=== PATIENT | female | born 1985 | race Caucasian/White ===

== ENCOUNTER 2016-11-05 01:40 | Inpatient (IN) | payer SELFPAY ==
[~2016-11-05 01:40] MED LIST: HUMALOG; LANTUS2P SQ; NALOXONE HCL 0.4 MG/ML AMP IV PRN; SODIUM CHLOR 0.9% 1000 ML INJ 1,000 ML IV SCH
[2016-11-05] MEDS: SODIUM CHLOR 0.9% 1000 ML INJ 1,000 ML IV SCH ×3 (02:50→20:44)
[2016-11-05] MEDS: LORazepam 2 MG/ML VIAL IV PUSH PRN ×3 (03:01→23:02)
[2016-11-05] MEDS: MORPHINE SULFATE 4 MG/ML INJ IV PUSH PRN ×7 (03:55→23:55)
[2016-11-05 04:00] VITALS: BP 147/63; PULSE 97; RESP 18; TEMP 97.9; O2SAT 93
[2016-11-05 08:00] VITALS: BP 142/70; PULSE 101; PULSE 90; RESP 18; TEMP 98.8; O2SAT 95
[2016-11-05] MEDS: SODIUM CHLORIDE 0.9% FLUSH 10 ML FLUSH IV FLUSH SCH ×2 (09:00→21:00)
[2016-11-05] MEDS: ONDANSETRON HCL 4 MG/2 ML VIAL IV PRN ×2 (09:16→19:48)
[2016-11-05 12:00] VITALS: BP 153/82; PULSE 96; RESP 18; TEMP 98.5; O2SAT 98
[2016-11-05 16:00] VITALS: BP 130/71; PULSE 84; RESP 18; TEMP 98.3; O2SAT 96
[2016-11-05 17:37] LABS: CHLORIDE 101 MEQ/L (98-107); POTASSIUM 3.7 MEQ/L (3.5-5.1); SODIUM (NA) 132 MEQ/L (136-145)
[2016-11-05 17:41] LABS: ANION GAP 7 MEQ/L (5-15); BICARBONATE 23.9 MEQ/L (21.0-32.0); BLOOD UREA NITROGEN 9 MG/DL (7-18)
[2016-11-05 17:44] LABS: ALT (GPT) 48 U/L (10-53); AST (GOT) 136 U/L (15-37); GLOMERULAR FILTRATION RATE 127 ML/MIN (>89)
[2016-11-05 17:45] LABS: TOTAL BILIRUBIN ADULT 4.3 MG/DL (0.2-1.0)
[2016-11-05 17:46] LABS: TOTAL BILIRUBIN ADULT 4.2 MG/DL (0.2-1.0)
[2016-11-05 17:47] LABS: ALKALINE PHOSPHATASE 116 U/L (45-117); CREATINE KINASE 238 U/L (26-192)
[2016-11-05 17:50] LABS: INDIRECT BILIRUBIN 2.8 MG/DL (0.0-0.8)
[2016-11-05 18:03] LABS: CKMB 1.3 NG/ML (0.5-3.6)
[2016-11-05 20:00] VITALS: BP 135/67; PULSE 93; RESP 20; TEMP 98.5; O2SAT 98
[2016-11-05 22:43] VITALS: PULSE 91
[2016-11-05] MEDS ORDERED: RIFAXIMIN 200 MG TAB PO ONE (23:15)
[2016-11-05] MEDS ORDERED: LACTULOSE SYRUP 20 GM/30 ML CUP PO ONE (23:15)
--- NOTE | 2016-11-05 23:20 | HHI.HP ---
[facility] [place] [facility] Primary Care Physician No Primary Care Physician Admission Diagnosis Diagnoses: Travel History International Travel<30 Days: No Contact w/Intl Traveler <30 Da: No Traveled to Known Affected Are: No History of Present Illness Patient seen this morning. Reports quitting alcohol 3-4 days ago, and reports one-day history of right upper quadrant pain, confusion. She says she woke up confused She says that she drinks "quite a hell of a lot"of alcohol daily. Patient was noted to have a seizure in the ER last night. She tells me it is 2016, however is unaware of the month. History is difficult secondary to generalized confusion. Review of Systems Except as stated in HPI: all other systems reviewed are Neg Past Family Social History Past Medical History Diabetes Chronic alcoholism Past Surgical History 4 Cholecystectomy Reported Medications patient states she takes insulin. Allergies: Coded Allergies: aspirin (Verified Allergy, Unknown, 11/04/16) Uncoded Allergies: BENTLY (Allergy, Unknown, 11/04/16) Family History Patient reports mother from unknown cancer. Reports father from heart attack age 51 Social History Patient smokes occasionally. Patient says she smokes an enormous amount of alcohol, but quit 3-4 days ago. Patient denies any illicit drugs. Physical Exam Vital Signs Vital Signs Date Time Temp Pulse Resp B/P (MAP) Pulse Ox O2 Delivery O2 Flow Rate FiO2 11/05/16 22:43 91 11/05/16 16:00 98.3 84 18 130/71 (90) 96 11/05/16 14:22 18 11/05/16 12:00 98.5 96 18 153/82 (105) 98 11/05/16 08:00 98.8 90 18 142/70 (94) 95 11/05/16 08:00 101 11/05/16 04:00 97.9 97 18 147/63 (91) 93 Physical Exam GENERAL: This is a well-nourished, obese,well-developed patient,appears generally confused. Oriented to year not month or day SKIN: No rashes, ecchymoses or lesions. Cool and dry. HEAD: Atraumatic. Normocephalic. No temporal or scalp tenderness. EYES: Pupils equal round and reactive. Extraocular motions intact. No scleral icterus. No injection or drainage. ENT: Nose without bleeding, purulent drainage or septal hematoma. Throat without erythema, tonsillar hypertrophy or exudate. Uvula midline. Airway patent. NECK: Trachea midline. No JVD or lymphadenopathy. Supple, nontender, no meningeal signs. CARDIOVASCULAR: Regular rate and rhythm without murmurs, gallops, or rubs. RESPIRATORY: Clear to auscultation. Breath sounds equal bilaterally. No wheezes , rales, or rhonchi. GASTROINTESTINAL: Abdomen soft, mild right upper quadrant tenderness. Positive bowel sounds. No rebound or guarding.No hepato-splenomegaly, or palpable masses. No guarding. MUSCULOSKELETAL: Extremities without clubbing, cyanosis, or edema. No joint tenderness, effusion, or edema noted. No calf tenderness. Negative Homans sign bilaterally. NEUROLOGICAL: Awake and alert. Cranial nerves II through XII intact. Motor and sensory grossly within normal limits. Five out of 5 muscle strength in all muscle groups. Normal speech. Laboratory Laboratory Tests Test 11/05/16 17:20 Blood Urea Nitrogen 9 Creatinine 0.56 Random Glucose 123 Total Protein 7.1 Albumin 2.5 Calcium Level 7.9 Alkaline Phosphatase 116 Aspartate Amino Transf (AST/SGOT) 136 Alanine Aminotransferase (ALT/SGPT) 48 Total Bilirubin 4.2 Sodium Level 132 Potassium Level 3.7 Chloride Level 101 Carbon Dioxide Level 23.9 Anion Gap 7 Estimat Glomerular Filtration Rate 127 Direct Bilirubin 1.5 Indirect Bilirubin 2.8 Ammonia 103 Total Creatine Kinase 238 Creatine Kinase MB 1.3 Creatine Kinase MB % 0.5 Result Diagram: 11/05/16 1720 Caprini VTE Risk Assessment Caprini VTE Risk Assessment: No/Low Risk (score <= 1) VTE Pharm Contraindication: Thrombocytopenia(<50) Caprini Risk Assessment Model Point Value = 1 Point Value = 2 Point Value = 3 Point Value = 5 Age 41-60 Minor surgery BMI > 25 kg/m2 Swollen legs Varicose veins or History of unexplained or recurrent spontaneous Oral contraceptives or hormone replacement Sepsis (< 1 month) Serious lung disease, including pneumonia (< 1 month) Abnormal pulmonary function Acute myocardial infarction Congestive heart failure (< 1 month) History of inflammatory bowel disease Medical patient at bed rest Age 61-74 Arthroscopic surgery Major open surgery (> 45 min) Laparoscopic surgery (> 45 min) Malignancy Confined to bed (> 72 hours) Immobilizing plaster cast Central venous access Age >= 75 History of VTE Family history of VTE Factor V Leiden Prothrombin [id number] Lupus anticoagulant Anticardiolipin antibodies Elevated serum homocysteine Heparin-induced thrombocytopenia Other congenital or acquired thrombophilia Stroke (< 1 month) Elective arthroplasty Hip, pelvis, or leg fracture Acute spinal cord injury (< 1 month) Prophylaxis Regimen Total Risk Factor Score Risk Level Prophylaxis Regimen 0-1 Low Early ambulation 2 Moderate Order ONE of the following: *Sequential Compression Device (SCD) *Heparin 5000 units SQ BID 3-4 Higher Order ONE of the following medications: *Heparin 5000 units SQ TID *Enoxaparin/Lovenox 40 mg SQ daily (WT < 150 kg, CrCl > 30 mL/min) *Enoxaparin/Lovenox 30 mg SQ daily (WT < 150 kg, CrCl > 10-29 mL/min) *Enoxaparin/Lovenox 30 mg SQ BID (WT < 150 kg, CrCl > 30 mL/min) AND/OR *Sequential Compression Device (SCD) 5 or more Highest Order ONE of the following medications: *Heparin 5000 units SQ TID (Preferred with Epidurals) *Enoxaparin/Lovenox 40 mg SQ daily (WT < 150 kg, CrCl > 30 mL/min) *Enoxaparin/Lovenox 30 mg SQ daily (WT < 150 kg, CrCl > 10-29 mL/min) *Enoxaparin/Lovenox 30 mg SQ BID (WT < 150 kg, CrCl > 30 mL/min) AND *Sequential Compression Device (SCD) Assessment and Plan Assessment and Plan //Hepatic encephalopathy. -No acute findings on CT head 11/04. Ammonia elevated 103. -Start lactulose and rifaximin. //Alcohol withdrawal. //Alcohol withdrawal seizure. -Altered mental status really could be from alcohol withdrawal. Patient says she quit taking 3-4 days prior to admission. -We'll schedule Librium. As needed Ativan. Continue to monitor closely. //Diabetes mellitus . Glucose within normal limits. We'll order A1c. Insulin sliding scale. //Thrombocytopenia. Likely secondary to liver disease and splenomegaly. No signs of bleeding. Continue to monitor. //Suspected alcoholic hepatitis. Likely subacute. CT abdomen from 11/04 reviewed. No acute findings. Splenomegaly, portal hypertension. Will order INR in order to calculate Madrey's discriminate function. Gastroenterology consult. //tobacco abuse. Will discuss with patient when more coherent. //Prophylaxis. No anti-coagulation due to liver disease. Discussed Condition With patient, nurse. Physician Certification 2 Midnight Certification Type: Admission for Inpatient Services Order for Inpatient Services The services are ordered in accordance with Medicare regulations or non- Medicare payer requirements, as applicable. In the case of services not specified as inpatient-only, they are appropriately provided as inpatient services in accordance with the 2-midnight benchmark. Estimated LOS (days): 2 days is the estimated time the patient will need to remain in the hospital, assuming treatment plan goals are met and no additional complications. Post-Hospital Plan: Home Basilio Ramsey MD Nov 05, 2016 23:20
[2016-11-05] MEDS ORDERED: GLUCAGON 1 MG/ML VIAL OTHER PRN (23:30)
[2016-11-05] MEDS ORDERED: DEXTROSE 50% IN WATER 50 ML VIAL(D50) IV PUSH PRN (23:30)
[2016-11-06] VITALS (7 sets, daily range): BP systolic 114–145; BP diastolic 65–80; PULSE 78–98; RESP 17–20; TEMP 97.2–99; O2SAT 95–97
[2016-11-06] MEDS ORDERED: RIFAXIMIN 200 MG TAB PO ONE (00:30)
[2016-11-06] MEDS: MORPHINE SULFATE 4 MG/ML INJ IV PUSH PRN ×7 (03:00→21:59)
[2016-11-06 05:52] LABS: HEMATOCRIT 27.6 % (35.0-46.0); MEAN CORPUSCULAR HEMOGLOBIN 23.5 PG (27.0-34.0); MEAN CORPUSCULAR HGB CONC 31.3 % (32.0-36.0); PLATELET COUNT 29 TH/MM3 (150-450); RED BLOOD COUNT 3.68 MIL/MM3 (4.00-5.30); RED CELL DISTRIBUTION WIDTH 17.7 % (11.6-17.2); WHITE BLOOD COUNT 3.2 TH/MM3 (4.0-11.0)
[2016-11-06 05:55] LABS: HEMO FLAGS AUTO DIFF
[2016-11-06] MEDS ORDERED: RIFAXIMIN 200 MG TAB PO SCH (06:00)
[2016-11-06] MEDS: SODIUM CHLOR 0.9% 1000 ML INJ 1,000 ML IV SCH ×2 (06:03→16:15)
[2016-11-06] MEDS: INSULIN ASPART SUPPLEMENTAL SCALE SQ SCH ×4 (06:08→21:00)
[2016-11-06 06:09] LABS: POTASSIUM 3.2 MEQ/L (3.5-5.1)
[2016-11-06 06:11] LABS: INTERNATIONAL NORMALIZED RATIO 1.6 RATIO; PROTHROMBIN TIME - PATIENT 18.6 SEC (9.8-11.6)
[2016-11-06 06:16] LABS: BICARBONATE 26.9 MEQ/L (21.0-32.0)
[2016-11-06 06:18] LABS: ACANTHOCYTES OCC (NORMAL); EOSINOPHILS 2 % (0-4); KERATOCYTES OCC (NORMAL); NEUTROPHIL # MANUAL DIFF 2.2 TH/MM3 (1.8-7.7); OVALOCYTES 1+ (NORMAL); PLATELET ESTIMATE SMEAR LOW (NORMAL); PLATELET MORPHOLOGY NORMAL (NORMAL); POLYS (SEG NEUTROPHILS) 70 % (16-70); SCAN/DIFF FINAL DIFF MANUAL; TARGET CELLS 1+ (NORMAL); TEARDROP RBCS 1+ (NORMAL); WBC DIFF SAMPLE 100
[2016-11-06] MEDS: SODIUM CHLORIDE 0.9% FLUSH 10 ML FLUSH IV FLUSH SCH ×2 (09:00→20:01)
[2016-11-06] MEDS: RIFAXIMIN 550 MG TAB PO SCH ×2 (09:06→20:00)
[2016-11-06] MEDS: LACTULOSE SYRUP 20 GM/30 ML CUP PO SCH ×4 (09:06→20:00)
[2016-11-06] MEDS ORDERED: POTASSIUM CHLORIDE 10 MEQ CONTROLLED RELEASE TAB PO ONE (12:00)
[2016-11-06 12:12] LABS: MAGNESIUM 1.6 MG/DL (1.5-2.5)
[2016-11-06 12:17] LABS: INDIRECT BILIRUBIN 2.2 MG/DL (0.0-0.8); TOTAL BILIRUBIN ADULT 4.1 MG/DL (0.2-1.0)
[2016-11-06 12:34] LABS: HEMOGLOBIN A1a 1.1 %; HEMOGLOBIN A1b 0.7 %; HEMOGLOBIN F 1.4 %; HEMOGLOBIN LA1C 1.7 %; HEMOGLOBIN P3 3.5 %
[2016-11-06] MEDS: ONDANSETRON HCL 4 MG/2 ML VIAL IV PRN ×2 (15:44→20:01)
--- NOTE | 2016-11-06 18:36 | MB ---
cc: ROWENA ROCHA DATE OF CONSULTATION 11/06/[address] Basilio Ramsey REASON FOR CONSULTATION abnormal liver enzymes, abdominal pain, confusion, alcoholic liver disease. HISTORY OF PRESENT ILLNESS Ms. Abreu is a 31-year-old lady who was admitted to the hospital for confusion and right upper quadrant pain. The patient is more awake today. She is able to give some history. She states she did have some nausea and vomiting for two days prior to her admission to the hospital. She reports some dark tarry stool in the past. She does have a history of hepatitis C, stated she was diagnosed two years ago , unclear what type of genotype she has or if she will have viral load positive or not. She was in drug rehab at that time while she was with her child. Currently she is using alcohol. She stopped using alcohol a few days prior to her admission here. She never had an endoscopy and colonoscopy. Currently, she is eating dinner with no problems. PAST MEDICAL HISTORY 1. Diabetes 2. Chronic alcohol use 3. History of hepatitis C 4. History of drug use. PAST SURGICAL HISTORY 1. x4 2. Cholecystectomy. MEDICATIONS Insulin. ALLERGIES ASPIRIN BENTYL FAMILY HISTORY Mother had cancer, unknown type SOCIAL HISTORY Smokes occasionally. She does drink alcohol, stopped 3-4 years ago, stopped using drugs two years ago after the of her child. REVIEW OF SYSTEMS She denies any fever or chills, weight loss or weight gain. ENT: No alteration in baseline hearing or visual acuity PULMONARY: Denies any chest pain, shortness of breath. GASTROINTESTINAL: As above. GENITOURINARY:: Denies dysuria, hematuria. HEMATOLOGIC: Does have history of anemia, no bleeding disorder. SKIN: No alteration in baseline skin lesion. NEUROLOGIC: No history of TIA or CVA kind of symptoms. She was recently admitted with confusion. PHYSICAL EXAMINATION GENERAL: On clinical exam she is sitting in bed in no acute distress, morbidly obese, jaundiced. VITAL SIGNS: Temperature of 98.1, pulse 83, respiration 19, blood pressure 114/75, pulse ox 97 HEENT: Pupils equal, round, reactive to light and accommodation. Jaundiced. NECK: No JVD. No lymphadenopathy. CHEST: Clear to auscultation and palpation. CARDIOVASCULAR: S1, S2. No murmur. ABDOMEN: Obese. Tender in the right upper quadrant. Splenomegaly. RESPIRATORY MANAGER: Awake, alert, oriented x3 at this time. No focal signs identified. LABORATORY DATA White count 3.2, hemoglobin 8.6, platelets 29. PT/INR 1.6 and 18.6. Chemistry - her total bilirubin is 4.1, direct bilirubin 1.9 with indirect bilirubin 2.2, albumin 2.5. IMAGING STUDIES CT abdomen and pelvis showed severe splenomegaly, hepatomegaly with steatosis. IMPRESSION 1. Ms. Abreu is an unfortunate 31-year-old lady admitted with confusion, abdominal pain resolved at this time. The patient has signs of portal hypertension. 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 Splenomegaly with low platelets. Low neutrophils. 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 2. Anemia macrocytic most likely secondary to liver disease, 3. Morbid obesity 4. Alcohol use. 5.elevated indirect bilirubin most likely some degree of hemolysis RECOMMENDATIONS We are going to send additional blood work including hepatitis C viral load, celiac panel, ELAINA, anti-smooth muscle antibody, anti-mitochondrial antibodies, ferritin iron, alpha-fetoprotein, hematology consultation. Supportive care. Transfuse p.r.n. The patient was counseled about stopping alcohol completely, may need upper endoscopy and colonoscopy before her discharge, hepatitis profile. I would like to thank Dr. Ramsey for referring her to our office for consultation. Rowena Rocha MD BSB/SA /5:49 PM /6:02 PM JOSE
--- NOTE | 2016-11-06 19:06 | MB ---
cc: YULIANA BRYAN MD DATE OF CONSULTATION 11/06/16 HISTORY OF PRESENT ILLNESS Ms. Abreu is a 31 year old lady with a history of diabetes, obesity, alcohol abuse, hepatitis C who presented to the emergency room with right upper quadrant abdominal pain and nausea and vomiting. She reports very heavy alcohol abuse. She says she drinks four six-packs of beer a day and multiple shots of hard liquor a day. She reports that she was vomiting in the park and a bystander called 911. She was brought to the [place] [facility]. In the emergency room, she was noted to have a seizure upon arrival. She reports that she was attempting to quit alcohol cold turkey and that is why she was feeling nauseated. She was found to have an anemia with a hemoglobin initially of 10.3 and then today value was 8.6. MCV is 75. She was also found to have thrombocytopenia with a platelet count of 39,000 on the and then today the platelet count value was 29,000. She has elevated total bilirubin, direct bilirubin and AST. PAST MEDICAL HISTORY 1. Diabetes 2. Hepatitis C 3. Alcohol abuse PAST SURGICAL HISTORY 1. Four caesarean sections 2. Cholecystectomy SOCIAL HISTORY The patient lives in [place] with her mother and she has four children, ages 5, 4, 3 and 2. Her mother is currently taking care of her children. She reports intermittent tobacco abuse and then heavy alcohol use. FAMILY HISTORY She reports that her father is from heart disease and liver disease. Her mother is living with diabetes. ALLERGIES ASPIRIN BENTYL SHE REPORTS SHE HAS NOSEBLEEDS TO BOTH MEDICATIONS. MEDICATIONS Home, Insulin REVIEW OF SYSTEMS GASTROINTESTINAL: Positive for abdominal pain, nausea and intermittent vomiting. SKIN: Positive for yellowing of the skin. CONSTITUTIONAL: Fatigue and malaise. All other review of systems are negative. PHYSICAL EXAMINATION GENERAL: Obese lady resting in bed in no distress often falls asleep during interview. HEAD: Normocephalic, atraumatic. NECK: Supple with no palpable lymphadenopathy. ENT: Oropharynx clear. CARDIOVASCULAR: Regular rate and rhythm with no murmur. RESPIRATORY: No respiratory distress. Clear to auscultation bilaterally. GASTROINTESTINAL: Obese abdomen, soft, tender to palpation. SKIN: Jaundice present. MUSCULOSKELETAL: Good muscle tone. Full range of motion. NEUROLOGIC: No focal deficit. PSYCHIATRIC: At times is angry and upset during interview. HEME: No easy bruising. ASSESSMENT AND PLAN 1. Thrombocytopenia. Platelet count initially 37,000 on November 04 and is 29,000 on value today. Suspect that multiple etiologies are contributing to her thrombocytopenia including known hepatitis C infection, chronic liver disease, alcoholism, hypersplenism with splenomegaly noted on recent CT scan. She is found to have massive splenomegaly with a spleen measuring 22.4 cm in length. On the same CT scan, her liver was found to be 26 cm. Steatosis was present and recannulized periumbilical vein indicating portal hypertension. She is not having any easy bruising or easy bleeding. 2. Anemia. This is also likely multifactorial due to known hepatitis C infection, chronic alcoholism and possible nutrient deficiency given alcohol abuse and poor diet. She does report heavy periods but no other sites of bleeding. She reports that she has received four blood transfusions in the past year. For further evaluation, we will order TSH, vitamin B12, free T4, folate, iron profile, ferritin, LDH, reticulocyte count, PT, PTT, INR, fibrinogen, haptoglobin, hepatitis C, peripheral blood smear. The patient has declined HIV test. We will follow up the results of above studies and, if unrevealing, we will consider a bone marrow biopsy. 3. Liver abnormalities, known hepatitis C and heavy alcohol abuse. GI team has been consulted and will continue to follow patient. Thank you for this consultation. The hematology service will continue to follow while inpatient. MD GIFTY Nicolas/ /5:59 PM /6:33 PM JOSE
--- NOTE | 2016-11-06 19:45 | HHI.PR ---
Subjective Remarks Patient seen this morning. Patient says that right upper quadrant pain continues. denies any chest pain or shortness of breath. Denies any bleeding.Denies any bowel movements. Objective Vital Signs Date Time Temp Pulse Resp B/P (MAP) Pulse Ox O2 Delivery O2 Flow Rate FiO2 11/06/16 16:31 98.1 83 19 114/75 (88) 97 11/06/16 12:00 97.2 89 17 123/80 (94) 96 11/06/16 08:00 97 11/06/16 08:00 97.7 85 18 120/76 (91) 97 11/06/16 06:27 18 11/06/16 04:00 98.9 95 20 119/79 (92) 95 11/06/16 00:00 99.0 98 20 124/65 (84) 97 11/05/16 22:43 91 11/05/16 20:00 98.5 93 20 135/67 (89) 98 I/O 11/05/16 11/05/16 11/05/16 11/06/16 11/06/16 11/06/16 06:59 14:59 22:59 06:59 14:59 22:59 Intake Total 640 ml 2981 ml 1346 ml 500 ml 604 ml Output Total 400 ml 800 ml Balance 640 ml 2581 ml 546 ml 500 ml 604 ml Intake Oral 1460 ml 500 ml IV Total 640 ml 1521 ml 1346 ml 604 ml Output Urine Total 400 ml 800 ml # Voids 1 # Bowel Movements 0 Result Diagram: 11/06/1652111/06/16521 Objective Remarks GENERAL: patient lying in bed. Awake, confusion has improved from yesterday. Patient is oriented to Person,year, month, location SKIN: Warm and dry. HEAD: Normocephalic. EYES: No scleral icterus. No injection or drainage. NECK: Supple, trachea midline. No JVD or lymphadenopathy. CARDIOVASCULAR: Regular rate and rhythm without murmurs, gallops, or rubs. RESPIRATORY: Breath sounds equal bilaterally. No accessory muscle use. GASTROINTESTINAL: Abdomen soft,tender to moderate palpation in the right upper quadrant. No rebound or guarding. MUSCULOSKELETAL: No cyanosis, or edema. BACK: Nontender without obvious deformity. No CVA tenderness. A/P Assessment and Plan //Hepatic encephalopathy. -No acute findings on CT head 11/04. Ammonia elevated 103. -cont lactulose and rifaximin. //Alcohol withdrawal.appears to be improving slightly. //Alcohol withdrawal seizure. -Altered mental status really could be from alcohol withdrawal. Patient says she quit taking 3-4 days prior to admission. -continuescheduled Librium. As needed Ativan. Continue to monitor closely. //Diabetes mellitus . Glucose within normal limits. We'll order A1c. Insulin sliding scale. //Thrombocytopenia. Likely secondary to liver disease and splenomegaly. No signs of bleeding. Continue to monitor. //Suspected alcoholic hepatitis. Likely subacute. CT abdomen from 11/04 reviewed. No acute findings. Splenomegaly, portal hypertension. Will order INR in order to calculate Madrey's discriminate function. Gastroenterology consult. //tobacco abuse. Will discuss with patient when more coherent. //Prophylaxis. No anti-coagulation due to liver disease. Discharge Planning when cleared by gastroenterology. Basilio Ramsey MD Nov 06, 2016 19:45
[2016-11-07] VITALS (8 sets, daily range): BP systolic 113–133; BP diastolic 66–76; PULSE 80–93; RESP 19–22; TEMP 97.7–98.1; O2SAT 93–99
[2016-11-07] MEDS: MORPHINE SULFATE 4 MG/ML INJ IV PUSH PRN ×7 (01:06→21:52)
[2016-11-07] MEDS: SODIUM CHLOR 0.9% 1000 ML INJ 1,000 ML IV SCH ×3 (02:06→22:15)
[2016-11-07] MEDS: ONDANSETRON HCL 4 MG/2 ML VIAL IV PRN ×3 (04:03→15:36)
[2016-11-07] MEDS: INSULIN ASPART SUPPLEMENTAL SCALE SQ SCH ×4 (06:24→21:00)
--- NOTE | 2016-11-07 08:08 | HHI.GIFU ---
GI Follow-up Note Consult Follow-up Subjective: Patient laying in bed comfortably, asking for pain medications.Hematology consult appreciated .No nausea, vomiting, still pain in ruq Objective: PHYSICAL EXAMINATION: Vitals signs stable No fever Vital Signs Date Time Temp Pulse Resp B/P (MAP) Pulse Ox O2 Delivery O2 Flow Rate FiO2 11/07/16 04:00 97.9 80 22 114/66 (82) 96 HEENT: Pupils round and reactive to light; normocephalic; atraumatic; jaundice. Throat is clear, obese NECK: Neck is supple, no JVD, no lymphadenopathy. CHEST: Chest is clear to auscultation and percussion. CARDIAC: Regular rate and rhythm with no murmur gallop or rubs. ABDOMEN: Soft, nondistended, nontender; no hepatosplenomegaly; bowel sounds are present in all four quadrants. EXTREMITIES: No clubbing, cyanosis, or edema. SKIN: Normal; no rash; jaundice. SEMICONDUCTOR DIES LOADER: No focal deficits; alert and oriented times three. Available Data (labs, X- Rays, Procedues) : Laboratory Tests Test 11/05/16 17:20 11/06/16 05:22 Blood Urea Nitrogen 9 MG/DL 7 MG/DL Creatinine 0.56 MG/DL 0.55 MG/DL Random Glucose 123 MG/DL 92 MG/DL Total Protein 7.1 GM/DL 6.9 GM/DL Albumin 2.5 GM/DL 2.5 GM/DL Calcium Level 7.9 MG/DL 7.7 MG/DL Alkaline Phosphatase 116 U/L 114 U/L Aspartate Amino Transf (AST/SGOT) 136 U/L 158 U/L Alanine Aminotransferase (ALT/SGPT) 48 U/L 50 U/L Total Bilirubin 4.2 MG/DL 4.1 MG/DL Sodium Level 132 MEQ/L 136 MEQ/L Potassium Level 3.7 MEQ/L 3.2 MEQ/L Chloride Level 101 MEQ/L 102 MEQ/L Carbon Dioxide Level 23.9 MEQ/L 26.9 MEQ/L Anion Gap 7 MEQ/L 7 MEQ/L Estimat Glomerular Filtration Rate 127 ML/MIN 130 ML/MIN Direct Bilirubin 1.5 MG/DL 1.9 MG/DL Indirect Bilirubin 2.8 MG/DL 2.2 MG/DL Ammonia 103 MCMOL/L Total Creatine Kinase 238 U/L Creatine Kinase MB 1.3 NG/ML Creatine Kinase MB % 0.5 % White Blood Count 3.2 TH/MM3 Red Blood Count 3.68 MIL/MM3 Hemoglobin 8.6 GM/DL Hematocrit 27.6 % Mean Corpuscular Volume 75.0 FL Mean Corpuscular Hemoglobin 23.5 PG Mean Corpuscular Hemoglobin Concent 31.3 % Red Cell Distribution Width 17.7 % Platelet Count 29 TH/MM3 Mean Platelet Volume 9.1 FL CBC Comment AUTO DIFF Differential Total Cells Counted 100 Neutrophils % (Manual) 70 % Lymphocytes % 23 % Monocytes % 5 % Eosinophils % 2 % Neutrophils # (Manual) 2.2 TH/MM3 Differential Comment FINAL DIFF MANUAL Platelet Estimate LOW Platelet Morphology Comment NORMAL Target Cells 1+ Tear Drop Cells 1+ Ovalocytes 1+ Acanthocytes OCC Keratocytes OCC Prothrombin Time 18.6 SEC Prothromb Time International Ratio 1.6 RATIO Hemoglobin A1c 5.3 % Magnesium Level 1.6 MG/DL ASSESSMENT/PLAN: pancytopenia most likely secondary liver cirrhosis liver cirrhosis secondary hep c and etoh anemia multifactorial nausea, vomiting -secondary etoh withdrawal pain ruq secondary enlarged liver/cirrhosis Recommendations egd/colon before discharge - fu labs await hematology work-up needs to stop etoh completely fu hep c viral load if positive rx as an op It was a pleasure seeing Juliana Abreu. Thank you for this consult. Entered by: Anca Thomas MD Nov 07, 2016 08:08
[2016-11-07] MEDS: RIFAXIMIN 550 MG TAB PO SCH ×2 (08:09→20:50)
[2016-11-07] MEDS: LACTULOSE SYRUP 20 GM/30 ML CUP PO SCH ×4 (08:09→20:50)
[2016-11-07] MEDS: LORazepam 2 MG/ML VIAL IV PUSH PRN ×4 (08:11→21:52)
[2016-11-07 08:40] LABS: HEMATOCRIT 27.4 % (35.0-46.0); MEAN CELL VOLUME 75.8 FL (80.0-100.0); MEAN CORPUSCULAR HEMOGLOBIN 24.4 PG (27.0-34.0); MEAN CORPUSCULAR HGB CONC 32.1 % (32.0-36.0); RED BLOOD COUNT 3.61 MIL/MM3 (4.00-5.30); RED CELL DISTRIBUTION WIDTH 18.3 % (11.6-17.2); WHITE BLOOD COUNT 2.4 TH/MM3 (4.0-11.0)
[2016-11-07 08:48] LABS: HEMO FLAGS AUTO DIFF; PLATELET COUNT 38 TH/MM3 (150-450)
[2016-11-07] MEDS: SODIUM CHLORIDE 0.9% FLUSH 10 ML FLUSH IV FLUSH SCH ×2 (09:00→20:50)
[2016-11-07 09:03] LABS: APTT (PATIENT) 32.5 SEC (24.3-30.1); INTERNATIONAL NORMALIZED RATIO 1.7 RATIO; PROTHROMBIN TIME - PATIENT 19.1 SEC (9.8-11.6)
[2016-11-07 09:04] LABS: CHLORIDE 102 MEQ/L (98-107); POTASSIUM 3.5 MEQ/L (3.5-5.1); SODIUM (NA) 136 MEQ/L (136-145)
[2016-11-07 09:08] LABS: ANION GAP 7 MEQ/L (5-15); BICARBONATE 27.2 MEQ/L (21.0-32.0); BLOOD UREA NITROGEN 5 MG/DL (7-18)
[2016-11-07 09:11] LABS: ALT (GPT) 56 U/L (10-53); AST (GOT) 159 U/L (15-37); GLOMERULAR FILTRATION RATE 133 ML/MIN (>89)
[2016-11-07 09:13] LABS: TOTAL BILIRUBIN ADULT 4.5 MG/DL (0.2-1.0)
[2016-11-07 09:14] LABS: ALKALINE PHOSPHATASE 117 U/L (45-117)
[2016-11-07 09:28] LABS: ACANTHOCYTES 1+ (NORMAL); BANDS 1 % (0-6); EOSINOPHILS 1 % (0-4); KERATOCYTES 1+ (NORMAL); METAMYELOCYTES 1 % (0-1); NEUTROPHIL # MANUAL DIFF 1.7 TH/MM3 (1.8-7.7); POLYS (SEG NEUTROPHILS) 68 % (16-70); TARGET CELLS 2+ (NORMAL); WBC DIFF SAMPLE 100
[2016-11-07 09:29] LABS: OVALOCYTES 1+ (NORMAL); PLATELET ESTIMATE SMEAR LOW (NORMAL); PLATELET MORPHOLOGY NORMAL (NORMAL); SCAN/DIFF FINAL DIFF MANUAL
[2016-11-07 09:44] LABS: RETIC % 2.5 % (0.4-3.0)
[2016-11-07 09:46] LABS: REVIEW FLAG FINAL
[2016-11-07 11:37] LABS: FERRITIN 81 NG/ML (8-252); LDH SERUM 277 U/L (84-246); TRANSFERRIN IRON PROFILE 170 MG/DL (200-360)
--- NOTE | 2016-11-07 19:38 | PD.ONC.PN ---
Subjective Subjective Remarks Appears drunk or sleepy. No seizures, requesting her pain medication before time. Lengthy discussion about her addiction and need to seek support to help her quit. Discussed there is evidence of liver damage and secondary effects of alcohol in the bone marrow. Advised need to follow up with liver specialist, states "that cost money" Objective Data Date Time Temp Pulse Resp B/P (MAP) Pulse Ox O2 Delivery O2 Flow Rate FiO2 11/07/16 18:39 97.8 85 19 133/75 (94) 93 11/07/16 18:35 20 11/07/16 12:15 98.1 82 19 120/76 (91) 94 11/07/16 09:34 98.1 93 20 113/71 (85) 99 11/07/16 08:00 85 11/07/16 04:00 97.9 80 22 114/66 (82) 96 11/07/16 00:00 97.7 83 22 124/72 (89) 97 11/06/16 20:01 82 11/06/16 20:00 97.7 78 18 145/76 (99) 97 11/07/16 11/07/16 11/07/16 07:00 15:00 23:00 Intake Total 1062 ml Balance 1062 ml Result Diagram: 11/07/16 0800 11/07/16 0800 Laboratory Results Laboratory Tests Test 11/07/16 08:00 White Blood Count 2.4 TH/MM3 Red Blood Count 3.61 MIL/MM3 Hemoglobin 8.8 GM/DL Hematocrit 27.4 % Mean Corpuscular Volume 75.8 FL Mean Corpuscular Hemoglobin 24.4 PG Mean Corpuscular Hemoglobin Concent 32.1 % Red Cell Distribution Width 18.3 % Platelet Count 38 TH/MM3 Mean Platelet Volume 8.4 FL CBC Comment AUTO DIFF Differential Total Cells Counted 100 Neutrophils % (Manual) 68 % Band Neutrophils % 1 % Lymphocytes % 25 % Monocytes % 4 % Eosinophils % 1 % Neutrophils # (Manual) 1.7 TH/MM3 Metamyelocytes 1 % Differential Comment FINAL DIFF MANUAL Platelet Estimate LOW Platelet Morphology Comment NORMAL Target Cells 2+ Ovalocytes 1+ Acanthocytes 1+ Keratocytes 1+ Blood Smear Pathologist Review Reticulocyte Count 2.5 % Absolute Reticulocyte Count 93.2 MIL/L Haptoglobin 14 MG/DL Prothrombin Time 19.1 SEC Prothromb Time International Ratio 1.7 RATIO Activated Partial Thromboplast Time 32.5 SEC Fibrinogen 181 mg/dL Blood Urea Nitrogen 5 MG/DL Creatinine 0.54 MG/DL Random Glucose 99 MG/DL Total Protein 7.2 GM/DL Albumin 2.5 GM/DL Calcium Level 8.3 MG/DL Alkaline Phosphatase 117 U/L Aspartate Amino Transf (AST/SGOT) 159 U/L Alanine Aminotransferase (ALT/SGPT) 56 U/L Total Bilirubin 4.5 MG/DL Sodium Level 136 MEQ/L Potassium Level 3.5 MEQ/L Chloride Level 102 MEQ/L Carbon Dioxide Level 27.2 MEQ/L Anion Gap 7 MEQ/L Estimat Glomerular Filtration Rate 133 ML/MIN Iron Level 59 MCG/DL Total Iron Binding Capacity 238 MCG/DL Percent Iron Saturation 24.8 % Ferritin 81 NG/ML Lactate Dehydrogenase 277 U/L Tumor Marker Alpha Fetoprotein 4.8 NG/ML Vitamin B12 Level 1048 PG/ML Folate 8.5 NG/ML Free Thyroxine 1.30 NG/DL Thyroid Stimulating Hormone 3rd Gen 6.050 uIU/ML Hepatitis A IgM Antibody NEGATIVE Hepatitis B Surface Antigen NEGATIVE Hepatitis B Core IgM Antibody NEGATIVE Hepatitis C Antibody REACTIVE Administered Medications Medications (Trade) Dose Ordered Sig/Renee Route PRN Reason Start Time Stop Time Status Last Admin Dose Admin Sodium Chloride 1,000 ml @ 100 mls/hr Q10H IV 11/05/16 00:15 11/07/16 11:30 Lorazepam (Ativan Inj) 1 mg Q2H PRN IV PUSH withdrawal symptoms 11/05/16 03:00 11/07/16 18:29 Morphine Sulfate (Morphine Inj) 2 mg Q3H PRN IV PUSH pain >5 11/05/16 03:00 11/07/16 18:30 Ondansetron HCl (Zofran Inj) 4 mg Q6H PRN IV NAUSEA OR VOMITING 11/05/16 09:00 11/07/16 15:36 Chlordiazepoxide (Librium) 10 mg TID PO 11/05/16 18:00 11/07/16 18:03 Lactulose (Lactulose Liq) 30 ml QID PO 11/06/16 09:00 11/07/16 18:03 Rifaximin (Xifaxan) 550 mg BID PO 11/06/16 09:00 11/07/16 08:09 Objective Remarks GENERAL: Obese woman, well-developed patient. SKIN: Warm and dry. Jaundiced. HEAD: Normocephalic. EYES: No scleral icterus. No injection or drainage. NECK: Supple, trachea midline. No JVD or lymphadenopathy. LYMPHATIC: No adenopathy. CARDIOVASCULAR: Regular rate and rhythm without murmurs. RESPIRATORY: Breath sounds equal bilaterally. No accessory muscle use. GASTROINTESTINAL: Abdomen soft, large. EXTREMITIES: No cyanosis, or edema. MUSCULOSKELETAL: Adequate muscle tone. NEUROLOGICAL: Lethargic. Awake, alert, and oriented x3. Assessment/Plan Problem List: (1) Pancytopenia ICD Codes: D61.818 - Other pancytopenia Status: Chronic Plan: Secondary to chronic ETOH abuse. BM suppression from ETOH. Noted pathology review peripheral smear. Other causes of decrease haptoglobin present such as the liver disease. Liver decompensation to cause decrease in synthetic function of liver, decrease haptoglobin, fibrinogen, albumin, prolonged pt/ptt. 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 LDH only mildly elevated, stable hgb, normal renal function which argues against a microangiopathic hemolytic process. Clinical scenario of alcoholism predominates (2) Alcoholism /alcohol abuse ICD Codes: F10.20 - Alcohol dependence, uncomplicated Status: Chronic Plan: Chronic ETOH abuse. Jaundiced. Advised detox, not certain that pt has resources to stop and is very likely to relapse. Liver decompensation to cause decrease haptoglobin, fibrinogen, albumin, prolonged pt/ptt. GI following. Assessment 31 y/o woman with ETOH abuse, liver disease and subsequent pancytopenia due to alcohol and hypersplenism. 1. supportive tx. 2. treat liver disease and addiction. 3. NO transfusion needed. Frida Murray MD Nov 07, 2016 19:38
[2016-11-07] MEDS: SODIUM CHLORIDE 0.9% FLUSH 10 ML FLUSH IV FLUSH PRN (21:52)
--- NOTE | 2016-11-07 21:59 | HHI.PR ---
Subjective Remarks Patient seen today around 2 PM. Says she is feeling a little better today. Continues with right upper quadrant pain. Denies any chest pain or shortness of breath. She does report transient shortness of breath while sleeping on her back and. She says she normally sleeps on her stomach at home due to difficulty breathing on her back. Objective Vital Signs Date Time Temp Pulse Resp B/P (MAP) Pulse Ox O2 Delivery O2 Flow Rate FiO2 11/07/16 20:00 97.9 84 22 133/72 (92) 97 11/07/16 18:39 97.8 85 19 133/75 (94) 93 11/07/16 18:35 20 11/07/16 12:15 98.1 82 19 120/76 (91) 94 11/07/16 09:34 98.1 93 20 113/71 (85) 99 11/07/16 08:00 85 11/07/16 04:00 97.9 80 22 114/66 (82) 96 11/07/16 00:00 97.7 83 22 124/72 (89) 97 I/O 11/06/16 11/06/16 11/06/16 11/07/16 11/07/16 11/07/16 07:00 15:00 23:00 07:00 15:00 23:00 Intake Total 1346 ml 500 ml 1650 ml 1062 ml Output Total 800 ml Balance 546 ml 500 ml 1650 ml 1062 ml Intake Oral 500 ml 240 ml IV Total 1346 ml 1650 ml 822 ml Output Urine Total 800 ml # Voids 5 # Bowel Movements 2 Result Diagram: 11/07/16 0800 11/07/16 0800 Objective Remarks GENERAL: patient sitting up in bed Awake, confusion has improved from yesterday. Patient is oriented to Person,year, month, location SKIN: Warm and dry. HEAD: Normocephalic. EYES: No scleral icterus. No injection or drainage. NECK: Supple, trachea midline. No JVD or lymphadenopathy. CARDIOVASCULAR: Regular rate and rhythm without murmurs, gallops, or rubs. RESPIRATORY: Breath sounds equal bilaterally. No accessory muscle use. GASTROINTESTINAL: Abdomen soft,tender to moderate palpation in the right upper quadrant. No rebound or guarding. MUSCULOSKELETAL: No cyanosis, or edema. BACK: Nontender without obvious deformity. No CVA tenderness. A/P Assessment and Plan =====11/07/16 Leukopenia worse today 2.4. Hemoglobin stable 8.8. No fevers. LFTs relatively stable. Bilirubin 4.5 from 4.1. Continue to monitor. Hepatitis C positive Hepatic encephalopathy improving. Continue lactulose. Suspected sleep apnea. Recommend patient sleep on her side tonight. She will do so. /Hepatic encephalopathy. -No acute findings on CT head 11/04. Ammonia elevated 103. -cont lactulose and rifaximin. //Alcohol withdrawal.appears to be improving slightly. //Alcohol withdrawal seizure. -Altered mental status really could be from alcohol withdrawal. Patient says she quit taking 3-4 days prior to admission. -continuescheduled Librium. As needed Ativan. Continue to monitor closely. //Diabetes mellitus . Glucose within normal limits. We'll order A1c. Insulin sliding scale. //Thrombocytopenia. Likely secondary to liver disease and splenomegaly. No signs of bleeding. Continue to monitor. //Suspected sleep apnea -Likely secondary to morbid obesity Patient will sleep on her side //Alcoholic cirrhosis //Hepatitis C -Continue monitoring as per gastroneurology. Patient will need EGD prior to discharge //tobacco abuse. Will discuss with patient when more coherent. //Prophylaxis. No anti-coagulation due to liver disease. Discharge Planning when cleared by gastroenterology. Basilio Ramsey MD Nov 07, 2016 21:59
[2016-11-08] VITALS: BP 133/82; PULSE 95; RESP 18; TEMP 97.7; O2SAT 98
[2016-11-08 04:00] VITALS: BP 105/57; PULSE 82; RESP 18; TEMP 97.8; O2SAT 98
[2016-11-08] MEDS: LORazepam 2 MG/ML VIAL IV PUSH PRN ×4 (05:22→23:37)
[2016-11-08] MEDS: MORPHINE SULFATE 4 MG/ML INJ IV PUSH PRN ×6 (05:22→23:37)
[2016-11-08 08:00] VITALS: BP 121/73; PULSE 74; PULSE 86; RESP 18; TEMP 96.9; O2SAT 96
[2016-11-08 08:14] LABS: POTASSIUM 3.8 MEQ/L (3.5-5.1)
[2016-11-08] MEDS: SODIUM CHLOR 0.9% 1000 ML INJ 1,000 ML IV SCH ×2 (08:15→18:15)
[2016-11-08 08:19] LABS: BICARBONATE 28.1 MEQ/L (21.0-32.0); MAGNESIUM 1.5 MG/DL (1.5-2.5)
[2016-11-08 08:20] LABS: HEMATOCRIT 27.4 % (35.0-46.0); MEAN CELL VOLUME 75.9 FL (80.0-100.0); MEAN CORPUSCULAR HEMOGLOBIN 23.8 PG (27.0-34.0); MEAN CORPUSCULAR HGB CONC 31.3 % (32.0-36.0); PLATELET COUNT 28 TH/MM3 (150-450); RED BLOOD COUNT 3.61 MIL/MM3 (4.00-5.30); RED CELL DISTRIBUTION WIDTH 18.3 % (11.6-17.2); WHITE BLOOD COUNT 2.3 TH/MM3 (4.0-11.0)
[2016-11-08 08:23] LABS: INDIRECT BILIRUBIN 1.8 MG/DL (0.0-0.8); TOTAL BILIRUBIN ADULT 3.5 MG/DL (0.2-1.0)
[2016-11-08 08:30] LABS: HEMO FLAGS AUTO DIFF
[2016-11-08] MEDS: RIFAXIMIN 550 MG TAB PO SCH ×2 (08:55→20:47)
[2016-11-08] MEDS: LACTULOSE SYRUP 20 GM/30 ML CUP PO SCH ×4 (08:55→20:46)
[2016-11-08] MEDS: ONDANSETRON HCL 4 MG/2 ML VIAL IV PRN ×2 (08:56→23:41)
[2016-11-08] MEDS: SODIUM CHLORIDE 0.9% FLUSH 10 ML FLUSH IV FLUSH SCH ×2 (08:57→19:35)
[2016-11-08 09:34] LABS: EOSINOPHILS 6 % (0-4); NEUTROPHIL # MANUAL DIFF 1.1 TH/MM3 (1.8-7.7); POLYS (SEG NEUTROPHILS) 48 % (16-70); SCAN/DIFF FINAL DIFF MANUAL; WBC DIFF SAMPLE 100
[2016-11-08 12:00] VITALS: BP 138/72; PULSE 86; RESP 20; TEMP 97.5; O2SAT 97
[2016-11-08] MEDS ORDERED: THIAMINE HCL 100 MG TAB PO ONE (14:30)
--- NOTE | 2016-11-08 14:39 | HHI.PR ---
Subjective Remarks Patient seen today around 2 PM. Says she is feeling a little better today. Continues with right upper quadrant pain. Denies any chest pain or shortness of breath. She does report transient shortness of breath while sleeping on her back and. She says she normally sleeps on her stomach at home due to difficulty breathing on her back. Objective Vital Signs Date Time Temp Pulse Resp B/P (MAP) Pulse Ox O2 Delivery O2 Flow Rate FiO2 11/08/16 09:01 20 11/08/16 08:00 96.9 86 18 121/73 (89) 96 11/08/16 08:00 74 11/08/16 04:00 97.8 82 18 105/57 (73) 98 11/08/16 00:00 97.7 95 18 133/82 (99) 98 11/07/16 20:05 84 11/07/16 20:00 97.9 84 22 133/72 (92) 97 11/07/16 18:39 97.8 85 19 133/75 (94) 93 I/O 11/07/16 11/07/16 11/07/16 11/08/16 11/08/16 11/08/16 06:59 14:59 22:59 06:59 14:59 22:59 Intake Total 1062 ml 250 ml 350 ml Balance 1062 ml 250 ml 350 ml Intake Oral 240 ml 250 ml 350 ml IV Total 822 ml # Voids 5 # Bowel Movements 2 Result Diagram: 11/08/16 0745 11/08/16 0745 Objective Remarks GENERAL: patient sleeping on side, wakes up for exam. Patient is oriented to Person,year, month, location SKIN: Warm and dry. HEAD: Normocephalic. EYES: No scleral icterus. No injection or drainage. NECK: Supple, trachea midline. No JVD or lymphadenopathy. CARDIOVASCULAR: Regular rate and rhythm without murmurs, gallops, or rubs. RESPIRATORY: Breath sounds equal bilaterally. No accessory muscle use. GASTROINTESTINAL: Abdomen soft,tender to moderate palpation in the right upper quadrant. No rebound or guarding. MUSCULOSKELETAL: No cyanosis, or edema. BACK: Nontender without obvious deformity. No CVA tenderness. A/P Assessment and Plan =====11/08/16 Leukopenia worse today 2.3. Hemoglobin stable 8.6. No fevers. plt 28 LFTs relatively stable. Bilirubin improved 3.5 from 4.5. Continue to monitor. Hepatitis C positive Hepatic encephalopathy improving. Continues improving. Continue lactulose. Suspected sleep apnea. Sleep improved on side last night. Follow-up gastric urology recommendations. /Hepatic encephalopathy. -No acute findings on CT head 11/04. Ammonia elevated 103. -cont lactulose and rifaximin. //Alcohol withdrawal.appears to be improving slightly. //Alcohol withdrawal seizure. -Altered mental status really could be from alcohol withdrawal. Patient says she quit taking 3-4 days prior to admission. -continuescheduled Librium. As needed Ativan. Continue to monitor closely. //Diabetes mellitus . Glucose within normal limits. A1c in the fives. Likely senescent secondary to liver failure. Patient is off sliding scale for now. //Thrombocytopenia. Likely secondary to liver disease and splenomegaly. No signs of bleeding. Continue to monitor. //Suspected sleep apnea -Likely secondary to morbid obesity Patient will sleep on her side //Alcoholic cirrhosis //Hepatitis C -Continue monitoring as per gastroneurology. Patient will need EGD prior to discharge //tobacco abuse. Will discuss with patient when more coherent. //Prophylaxis. No anti-coagulation due to liver disease. Discharge Planning when cleared by gastroenterology. Basilio Ramsey MD Nov 08, 2016 14:39
[2016-11-08 16:00] VITALS: BP 149/77; PULSE 90; RESP 20; TEMP 96.7; O2SAT 96
--- NOTE | 2016-11-08 16:27 | HHI.GIFU ---
Subjective Remarks Slightly lethargic and poor appetite, no specific symptoms. Objective Vitals I&O Vital Signs Date Time Temp Pulse Resp B/P (MAP) Pulse Ox O2 Delivery O2 Flow Rate FiO2 11/08/16 12:00 97.5 86 20 138/72 (94) 97 11/08/16 09:01 20 11/08/16 08:00 96.9 86 18 121/73 (89) 96 11/08/16 08:00 74 11/08/16 04:00 97.8 82 18 105/57 (73) 98 11/08/16 00:00 97.7 95 18 133/82 (99) 98 11/07/16 20:05 84 11/07/16 20:00 97.9 84 22 133/72 (92) 97 11/07/16 18:39 97.8 85 19 133/75 (94) 93 I/O 11/07/16 11/07/16 11/07/16 11/08/16 11/08/16 11/08/16 07:00 15:00 23:00 07:00 15:00 23:00 Intake Total 1062 ml 250 ml 350 ml Balance 1062 ml 250 ml 350 ml Intake Oral 240 ml 250 ml 350 ml IV Total 822 ml # Voids 5 # Bowel Movements 2 Laboratory Laboratory Tests Test 11/08/16 07:45 White Blood Count 2.3 Red Blood Count 3.61 Hemoglobin 8.6 Hematocrit 27.4 Mean Corpuscular Volume 75.9 Mean Corpuscular Hemoglobin 23.8 Mean Corpuscular Hemoglobin Concent 31.3 Red Cell Distribution Width 18.3 Platelet Count 28 Mean Platelet Volume 7.8 CBC Comment AUTO DIFF Differential Total Cells Counted 100 Neutrophils % (Manual) 48 Lymphocytes % 38 Monocytes % 8 Eosinophils % 6 Neutrophils # (Manual) 1.1 Differential Comment FINAL DIFF MANUAL Blood Urea Nitrogen 6 Creatinine 0.52 Random Glucose 128 Total Protein 6.7 Albumin 2.3 Calcium Level 8.7 Phosphorus Level 3.5 Magnesium Level 1.5 Alkaline Phosphatase 115 Aspartate Amino Transf (AST/SGOT) 129 Alanine Aminotransferase (ALT/SGPT) 50 Total Bilirubin 3.5 Direct Bilirubin 1.7 Sodium Level 139 Potassium Level 3.8 Chloride Level 104 Carbon Dioxide Level 28.1 Anion Gap 7 Estimat Glomerular Filtration Rate 138 Indirect Bilirubin 1.8 Physical Exam HEENT: Pupils round and reactive to light; normocephalic; atraumatic; no jaundice. Throat is clear. NECK: Neck is supple, no JVD, no lymphadenopathy. CHEST: Chest is clear to auscultation and percussion. CARDIAC: Regular rate and rhythm with no murmur gallop or rubs. ABDOMEN: Soft, nondistended, nontender; no hepatosplenomegaly; bowel sounds are present in all four quadrants. EXTREMITIES: No clubbing, cyanosis, or edema. SKIN: Normal; no rash; no jaundice. 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 Vy Anna MD Nov 08, 2016 16:27
[2016-11-08 20:00] VITALS: BP 142/80; PULSE 92; PULSE 96; RESP 18; TEMP 96.9; O2SAT 98
[2016-11-09] VITALS: BP 121/67; PULSE 95; RESP 18; TEMP 97.8; O2SAT 98
[2016-11-09] MEDS: MORPHINE SULFATE 4 MG/ML INJ IV PUSH PRN ×3 (02:41→08:40)
[2016-11-09] MEDS: LORazepam 2 MG/ML VIAL IV PUSH PRN ×2 (02:41→05:30)
[2016-11-09 03:51] LABS: HCV RNA PCR IU/ML LESS THAN 15 IU/mL (0-14); HCV RNA PCR LOGIU/ML LESS THAN 1.18 (0-1.18); IGA SERUM 685 mg/dL (81-463)
[2016-11-09 04:00] VITALS: BP 130/60; PULSE 91; RESP 20; TEMP 97.7; O2SAT 97
[2016-11-09] MEDS: SODIUM CHLOR 0.9% 1000 ML INJ 1,000 ML IV SCH ×2 (04:15→05:35)
[2016-11-09 08:00] VITALS: BP 117/66; PULSE 87; RESP 20; TEMP 97.9; O2SAT 98
[2016-11-09 08:08] LABS: BASOPHIL % 0.9 % (0.0-2.0); EOSINOPHIL # 0.1 TH/MM3 (0-0.4); EOSINOPHIL % 4.5 % (0.0-4.0); HEMATOCRIT 25.8 % (35.0-46.0); LYMPH % 32.3 % (9.0-44.0); LYMPHOCYTE # 0.7 TH/MM3 (1.0-4.8); MEAN CELL VOLUME 77.1 FL (80.0-100.0); MEAN CORPUSCULAR HEMOGLOBIN 24.5 PG (27.0-34.0); MEAN CORPUSCULAR HGB CONC 31.8 % (32.0-36.0); MONO % 19.2 % (0.0-8.0); NEUT % 43.1 % (16.0-70.0); PLATELET COUNT 29 TH/MM3 (150-450); RED BLOOD COUNT 3.35 MIL/MM3 (4.00-5.30); RED CELL DISTRIBUTION WIDTH 19.2 % (11.6-17.2); WHITE BLOOD COUNT 2.2 TH/MM3 (4.0-11.0)
[2016-11-09 08:12] LABS: INTERNATIONAL NORMALIZED RATIO 1.6 RATIO; PROTHROMBIN TIME - PATIENT 18.5 SEC (9.8-11.6)
[2016-11-09 08:16] LABS: BICARBONATE 29.2 MEQ/L (21.0-32.0); HEMO FLAGS AUTO DIFF; MAGNESIUM 1.6 MG/DL (1.5-2.5)
[2016-11-09 08:21] LABS: INDIRECT BILIRUBIN 1.5 MG/DL (0.0-0.8)
[2016-11-09 08:35] LABS: EOSINOPHILS 4 % (0-4); NEUTROPHIL # MANUAL DIFF 0.7 TH/MM3 (1.8-7.7); PLATELET ESTIMATE SMEAR LOW (NORMAL); PLATELET MORPHOLOGY NORMAL (NORMAL); POLYS (SEG NEUTROPHILS) 33 % (16-70); SCAN/DIFF FINAL DIFF MANUAL; WBC DIFF SAMPLE 100
[2016-11-09] MEDS: RIFAXIMIN 550 MG TAB PO SCH ×2 (08:38→20:34)
[2016-11-09] MEDS: THIAMINE HCL 100 MG TAB PO SCH (08:39)
[2016-11-09] MEDS: SODIUM CHLORIDE 0.9% FLUSH 10 ML FLUSH IV FLUSH SCH ×2 (08:39→20:34)
[2016-11-09] MEDS: LACTULOSE SYRUP 20 GM/30 ML CUP PO SCH ×4 (08:39→20:34)
[2016-11-09 12:00] VITALS: BP 100/63; PULSE 86; RESP 20; TEMP 98.2; O2SAT 96
[2016-11-09] MEDS ORDERED: NALOXONE HCL 0.4 MG/ML AMP IV PRN (12:45)
[2016-11-09] MEDS: LIDOCAINE HCL 5% PATCH T-DERMAL SCH (13:34)
[2016-11-09 15:37] VITALS: BP 96/44; PULSE 90; RESP 20; TEMP 98.6; O2SAT 96
--- NOTE | 2016-11-09 15:48 | HHI.PR ---
Subjective Remarks Patient seen this morning around 9 AM. Sitting, wakes up for exam. Reports right upper quadrant pain continues. Denies any chest pain or shortness of breath. Objective Vital Signs Date Time Temp Pulse Resp B/P (MAP) Pulse Ox O2 Delivery O2 Flow Rate FiO2 11/09/16 14:37 18 11/09/16 12:00 98.2 86 20 100/63 (75) 96 11/09/16 08:45 18 11/09/16 08:00 97.9 87 20 117/66 (83) 98 11/09/16 04:00 97.7 91 20 130/60 (83) 97 11/09/16 00:00 97.8 95 18 121/67 (85) 98 11/08/16 20:00 96.9 96 18 142/80 (100) 98 11/08/16 20:00 92 11/08/16 16:00 96.7 90 20 149/77 (101) 96 I/O 11/08/16 11/08/16 11/08/16 11/09/16 11/09/16 11/09/16 06:59 14:59 22:59 06:59 14:59 22:59 Intake Total 350 ml 720 ml 250 ml 690 ml Balance 350 ml 720 ml 250 ml 690 ml Intake Oral 350 ml 720 ml 250 ml 690 ml # Voids 3 4 # Bowel Movements 1 Result Diagram: 11/09/16 0700 11/09/16 0700 Objective Remarks GENERAL: patient sleeping, wakes up for exam. Patient is oriented to Person, year, month, location. SKIN: Warm and dry. HEAD: Normocephalic. EYES: No scleral icterus. No injection or drainage. NECK: Supple, trachea midline. No JVD. CARDIOVASCULAR: Regular rate and rhythm without murmurs, gallops, or rubs. RESPIRATORY: Breath sounds equal bilaterally. No accessory muscle use. GASTROINTESTINAL: Abdomen soft,tender to moderate palpation in the right upper quadrant. No change. No rebound or guarding. MUSCULOSKELETAL: No cyanosis, or edema. BACK: Nontender without obvious deformity. No CVA tenderness. A/P Assessment and Plan =====11/09/16 Leukopenia worse today 2.2. Hemoglobin decreased to 8.2 from 8.6 yesterday. It was stable at 29. -Absolute neutrophil count 0.7 today from 1.1 yesterday. Start neutropenic precautions. LFTs improving again today. Bilirubin 3.0 from 3.5 yesterday. Bilirubin improved 3.5 from 4.5. Continue to monitor. Hepatitis C positive Hepatic encephalopathy improving. Continues improving. Continue lactulose. -Taper Librium. -Discontinue IV narcotics. lidocaine patch ordered. Suspected sleep apnea. Sleep improved on side. /Hepatic encephalopathy. -No acute findings on CT head 11/04. Ammonia elevated 103. -cont lactulose and rifaximin. //Alcohol withdrawal.appears to be improving slightly. //Alcohol withdrawal seizure. //Hepatitis C -Altered mental status really could be from alcohol withdrawal. Patient says she quit taking 3-4 days prior to admission. -continuescheduled Librium. As needed Ativan. Continue to monitor closely. //Diabetes mellitus . Glucose within normal limits. A1c in the fives. Likely senescent secondary to liver failure. Patient is off sliding scale for now. //Thrombocytopenia. Likely secondary to liver disease and splenomegaly. No signs of bleeding. Continue to monitor. //Suspected sleep apnea -Likely secondary to morbid obesity Patient will sleep on her side //Alcoholic cirrhosis //Hepatitis C -Continue monitoring as per gastroneurology. Patient will need EGD prior to discharge //tobacco abuse. Will discuss with patient when more coherent. //Prophylaxis. No anti-coagulation due to liver disease. Discharge Planning Still with worsening neutropenia. -We'll need improvement in neutropenia, as well as clearance from gastroenterology. Basilio Ramsey MD Nov 09, 2016 15:48
[2016-11-09 20:00] VITALS: BP 121/45; PULSE 85; RESP 20; TEMP 99; O2SAT 97
[2016-11-09] MEDS: REMOVE OLD PATCH T-DERMAL SCH (20:37)
[2016-11-09 23:53] LABS: ENDOMYSIAL AB TITER ND (<1:5); TISSUE TRANSGLUTAMINASE AB 3 U/mL (0-4)
[2016-11-10] VITALS: BP 104/42; PULSE 87; RESP 20; TEMP 98.9; O2SAT 98
[2016-11-10] MEDS: SODIUM CHLOR 0.9% 1000 ML INJ 1,000 ML IV SCH ×3 (00:15→20:10)
[2016-11-10 04:00] VITALS: BP 110/45; PULSE 87; RESP 20; TEMP 97.7; O2SAT 99
[2016-11-10 08:23] VITALS: BP 110/53; PULSE 77; RESP 19; TEMP 98.2; O2SAT 93
[2016-11-10] MEDS: SODIUM CHLORIDE 0.9% FLUSH 10 ML FLUSH IV FLUSH SCH ×2 (10:20→20:11)
[2016-11-10] MEDS: THIAMINE HCL 100 MG TAB PO SCH (10:21)
[2016-11-10] MEDS: RIFAXIMIN 550 MG TAB PO SCH ×2 (10:21→20:08)
[2016-11-10] MEDS: LIDOCAINE HCL 5% PATCH T-DERMAL SCH (10:22)
[2016-11-10] MEDS: LACTULOSE SYRUP 20 GM/30 ML CUP PO SCH ×4 (10:22→20:08)
[2016-11-10 10:49] LABS: AUTOMATED NEUTROPHIL # 0.9 TH/MM3 (1.8-7.7); BASOPHIL % 1.1 % (0.0-2.0); EOSINOPHIL # 0.1 TH/MM3 (0-0.4); EOSINOPHIL % 3.2 % (0.0-4.0); HEMATOCRIT 28.3 % (35.0-46.0); LYMPH % 33.1 % (9.0-44.0); LYMPHOCYTE # 0.7 TH/MM3 (1.0-4.8); MEAN CORPUSCULAR HGB CONC 31.5 % (32.0-36.0); MONO % 19.1 % (0.0-8.0); NEUT % 43.5 % (16.0-70.0); PLATELET COUNT 59 TH/MM3 (150-450); RED BLOOD COUNT 3.73 MIL/MM3 (4.00-5.30); RED CELL DISTRIBUTION WIDTH 19.5 % (11.6-17.2); WHITE BLOOD COUNT 2.1 TH/MM3 (4.0-11.0)
[2016-11-10 10:53] LABS: CHLORIDE 101 MEQ/L (98-107); POTASSIUM 3.8 MEQ/L (3.5-5.1); SODIUM (NA) 138 MEQ/L (136-145)
[2016-11-10 10:57] LABS: ANION GAP 6 MEQ/L (5-15); BICARBONATE 31.4 MEQ/L (21.0-32.0); BLOOD UREA NITROGEN 7 MG/DL (7-18)
[2016-11-10 10:58] LABS: HEMO FLAGS AUTO DIFF
[2016-11-10 11:00] LABS: ALT (GPT) 50 U/L (10-53); AST (GOT) 117 U/L (15-37); GLOMERULAR FILTRATION RATE 133 ML/MIN (>89)
[2016-11-10 11:02] LABS: TOTAL BILIRUBIN ADULT 2.8 MG/DL (0.2-1.0)
[2016-11-10 11:03] LABS: ALKALINE PHOSPHATASE 105 U/L (45-117)
--- NOTE | 2016-11-10 11:11 | HHI.PR ---
Subjective Remarks Patient sitting up in bed. Appears couple. Sleeping, wakes up for exam. Reports continued right upper quadrant pain. Does say that lidocaine patch helped yesterday. Discussed with nurse. We'll replace lidocaine patch today. Objective Vital Signs Date Time Temp Pulse Resp B/P (MAP) Pulse Ox O2 Delivery O2 Flow Rate FiO2 11/10/16 08:34 18 11/10/16 08:23 98.2 77 19 110/53 (72) 93 11/10/16 04:00 97.7 87 20 110/45 (66) 99 11/10/16 00:00 98.9 87 20 104/42 (62) 98 11/09/16 20:00 99.0 85 20 121/45 (70) 97 11/09/16 15:37 98.6 90 20 96/44 (61) 96 11/09/16 12:00 98.2 86 20 100/63 (75) 96 I/O 11/09/16 11/09/16 11/09/16 11/10/16 11/10/16 11/10/16 07:00 15:00 23:00 07:00 15:00 23:00 Intake Total 250 ml 690 ml 480 ml 720 ml Balance 250 ml 690 ml 480 ml 720 ml Intake Oral 250 ml 690 ml 480 ml 720 ml # Voids 4 4 5 # Bowel Movements 2 1 Result Diagram: 11/10/16 1015 11/10/16 1015 Objective Remarks GENERAL: patient sleeping, wakes up for exam. as beforePatient is oriented to Person,year, month, location. SKIN: Warm and dry. HEAD: Normocephalic. EYES: No scleral icterus. No injection or drainage. NECK: Supple, trachea midline. No JVD. CARDIOVASCULAR: Regular rate and rhythm without murmurs, gallops, or rubs. RESPIRATORY: Breath sounds equal bilaterally. No accessory muscle use. GASTROINTESTINAL: Abdomen soft, still pump operator to moderate palpation in the right upper quadrant. No change. No rebound or guarding. MUSCULOSKELETAL: No cyanosis, or edema. BACK: Nontender without obvious deformity. No CVA tenderness. A/P Assessment and Plan =====11/10/16 Leukopenia worse today 2.2. Hemoglobin decreased to 8.2 from 8.6 yesterday. It was stable at 29. -Absolute neutrophil count 0.7 today from 1.1 yesterday. Start neutropenic precautions. LFTs improving again today. Bilirubin 3.0 from 3.5 yesterday. Bilirubin improved 3.5 from 4.5. Continue to monitor. Hepatitis C positive Hepatic encephalopathy improving. Continues improving. Continue lactulose. -Taper Librium. -Discontinue IV narcotics. lidocaine patch ordered. Suspected sleep apnea. Sleep improved on side. /Hepatic encephalopathy. -No acute findings on CT head 11/04. Ammonia elevated 103. -cont lactulose and rifaximin. //Alcohol withdrawal.appears to be improving slightly. //Alcohol withdrawal seizure. //Hepatitis C -Altered mental status really could be from alcohol withdrawal. Patient says she quit taking 3-4 days prior to admission. -continuescheduled Librium. As needed Ativan. Continue to monitor closely. //Diabetes mellitus . Glucose within normal limits. A1c in the fives. Likely senescent secondary to liver failure. Patient is off sliding scale for now. //Thrombocytopenia. Likely secondary to liver disease and splenomegaly. No signs of bleeding. Continue to monitor. //Suspected sleep apnea -Likely secondary to morbid obesity Patient will sleep on her side //Alcoholic cirrhosis //Hepatitis C -Continue monitoring as per gastroneurology. Patient will need EGD prior to discharge //tobacco abuse. Will discuss with patient when more coherent. //Prophylaxis. No anti-coagulation due to liver disease. Discharge Planning Still with worsening neutropenia. -We'll need improvement in neutropenia, as well as clearance from gastroenterology. Basilio Ramsey MD Nov 10, 2016 11:11
[2016-11-10 12:21] LABS: BANDS 2 % (0-6); BASOPHILS 3 % (0-2); EOSINOPHILS 3 % (0-4); POLYS (SEG NEUTROPHILS) 44 % (16-70); WBC DIFF SAMPLE 100
[2016-11-10 12:23] LABS: TARGET CELLS 2+ (NORMAL)
[2016-11-10 12:24] LABS: OVALOCYTES 2+ (NORMAL)
[2016-11-10 12:25] LABS: PLATELET ESTIMATE SMEAR LOW (NORMAL); PLATELET MORPHOLOGY NORMAL (NORMAL); SCAN/DIFF FINAL DIFF MANUAL
[2016-11-10 12:59] VITALS: BP 108/55; PULSE 84; RESP 19; TEMP 97.6; O2SAT 98
[2016-11-10 16:13] LABS: ANA SCREEN NEG (NEG)
[2016-11-10] MEDS: traMADol HCL 50 MG TAB PO PRN (17:50)
[2016-11-10 17:58] VITALS: BP 121/74; PULSE 76; RESP 19; TEMP 97.9; O2SAT 92
--- NOTE | 2016-11-10 18:23 | PD.ONC.PN ---
Subjective Subjective Remarks Patient seen and examined vital signs, medications, consultants and reports reviewed. Subjectively; the patient reports feeling tremulous and anxious. She tells me she feels tired and shaky when she gets up out of bed. She tells me she thinks her Ativan is being tapered off too quickly. She denies overt bleeding, fevers, chills or night sweats. Objective Data Date Time Temp Pulse Resp B/P (MAP) Pulse Ox O2 Delivery O2 Flow Rate FiO2 11/10/16 17:58 97.9 76 19 121/74 (90) 92 11/10/16 17:02 18 11/10/16 12:59 97.6 84 19 108/55 (72) 98 11/10/16 08:23 98.2 77 19 110/53 (72) 93 11/10/16 04:00 97.7 87 20 110/45 (66) 99 11/10/16 00:00 98.9 87 20 104/42 (62) 98 11/09/16 20:00 99.0 85 20 121/45 (70) 97 11/10/16 11/10/16 11/10/16 06:59 14:59 22:59 Intake Total 720 ml 300 ml Balance 720 ml 300 ml Result Diagram: 11/10/16 1015 11/10/16 1015 Laboratory Results Laboratory Tests Test 11/10/16 10:15 White Blood Count 2.1 TH/MM3 Red Blood Count 3.73 MIL/MM3 Hemoglobin 8.9 GM/DL Hematocrit 28.3 % Mean Corpuscular Volume 76.0 FL Mean Corpuscular Hemoglobin 24.0 PG Mean Corpuscular Hemoglobin Concent 31.5 % Red Cell Distribution Width 19.5 % Platelet Count 59 TH/MM3 Mean Platelet Volume 11.6 FL Neutrophils (%) (Auto) 43.5 % Lymphocytes (%) (Auto) 33.1 % Monocytes (%) (Auto) 19.1 % Eosinophils (%) (Auto) 3.2 % Basophils (%) (Auto) 1.1 % Neutrophils # (Auto) 0.9 TH/MM3 Lymphocytes # (Auto) 0.7 TH/MM3 Monocytes # (Auto) 0.4 TH/MM3 Eosinophils # (Auto) 0.1 TH/MM3 Basophils # (Auto) 0.0 TH/MM3 CBC Comment AUTO DIFF Differential Total Cells Counted 100 Neutrophils % (Manual) 44 % Band Neutrophils % 2 % Lymphocytes % 45 % Monocytes % 3 % Eosinophils % 3 % Basophils % 3 % Neutrophils # (Manual) 1.0 TH/MM3 Differential Comment FINAL DIFF MANUAL Platelet Estimate LOW Platelet Morphology Comment NORMAL Basophilic Stippling MOD Target Cells 2+ Ovalocytes 2+ Blood Urea Nitrogen 7 MG/DL Creatinine 0.54 MG/DL Random Glucose 172 MG/DL Total Protein 6.8 GM/DL Albumin 2.3 GM/DL Calcium Level 8.7 MG/DL Alkaline Phosphatase 105 U/L Aspartate Amino Transf (AST/SGOT) 117 U/L Alanine Aminotransferase (ALT/SGPT) 50 U/L Total Bilirubin 2.8 MG/DL Sodium Level 138 MEQ/L Potassium Level 3.8 MEQ/L Chloride Level 101 MEQ/L Carbon Dioxide Level 31.4 MEQ/L Anion Gap 6 MEQ/L Estimat Glomerular Filtration Rate 133 ML/MIN Administered Medications Medications (Trade) Dose Ordered Sig/Renee Route PRN Reason Start Time Stop Time Status Last Admin Dose Admin Sodium Chloride (NS Flush) 2 ml UNSCH PRN IV FLUSH FLUSH AFTER USING IV ACCESS 11/05/16 00:15 11/07/16 21:52 Sodium Chloride (NS Flush) 2 ml BID IV FLUSH 11/05/16 09:00 11/10/16 10:20 Sodium Chloride 1,000 ml @ 100 mls/hr Q10H IV 11/05/16 00:15 11/09/16 05:35 Ondansetron HCl (Zofran Inj) 4 mg Q6H PRN IV NAUSEA OR VOMITING 11/05/16 09:00 11/08/16 23:41 Lactulose (Lactulose Liq) 30 ml QID PO 11/06/16 09:00 11/10/16 17:47 Rifaximin (Xifaxan) 550 mg BID PO 11/06/16 09:00 11/10/16 10:21 Thiamine HCl (Vitamin B1) 100 mg DAILY PO 11/09/16 09:00 11/10/16 10:21 Lidocaine HCl (Lidoderm 5% Patch.12 Hr) 1 patch DAILY T-DERMAL 11/09/16 13:00 11/10/16 10:22 Oxycodone HCl (Roxicodone) 2.5 mg Q4H PRN PO PAIN SCALE 6 TO 10 11/09/16 12:45 11/10/16 16:02 Tramadol HCl (Ultram) 50 mg Q4H PRN PO PAIN SCALE 3 TO 5 11/09/16 12:45 11/10/16 17:50 Miscellaneous Information 1 HS T-DERMAL 11/09/16 21:00 11/09/16 20:37 Objective Remarks GENERAL: Young Obese woman, well-developed patient. Laying in bed watching television, not acutely distressed. SKIN: Warm and dry. Jaundiced. HEAD: Normocephalic. EYES: scleral icterus noted conjunctivae are pale. No injection or drainage. NECK: Supple, trachea midline. No JVD or lymphadenopathy. LYMPHATIC: No adenopathy. CARDIOVASCULAR: Regular rate and rhythm without murmurs. RESPIRATORY: Breath sounds equal bilaterally. No accessory muscle use. GASTROINTESTINAL: Abdomen soft, large. Tenderness over the right upper quadrant. EXTREMITIES: No cyanosis, or edema. MUSCULOSKELETAL: Adequate muscle tone. NEUROLOGICAL: Lethargic. Awake, alert, and oriented x3. Assessment/Plan Problem List: (1) Pancytopenia ICD Codes: D61.818 - Other pancytopenia Status: Chronic Plan: Secondary to chronic ETOH abuse. BM suppression from ETOH. Noted pathology review peripheral smear. Other causes of decrease haptoglobin present such as the liver disease. Liver decompensation to cause decrease in synthetic function of liver, decrease haptoglobin, fibrinogen, albumin, prolonged pt/ptt. 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 LDH only mildly elevated, stable hgb, normal renal function which argues against a microangiopathic hemolytic process. Clinical scenario of alcoholism predominates (2) Alcoholism /alcohol abuse ICD Codes: F10.20 - Alcohol dependence, uncomplicated Status: Chronic Plan: Chronic ETOH abuse. Jaundiced. Advised detox, not certain that pt has resources to stop and is very likely to relapse. Liver decompensation to cause decrease haptoglobin, fibrinogen, albumin, prolonged pt/ptt. GI following. Assessment 31 y/o woman with ETOH abuse, liver disease and subsequent pancytopenia due to alcohol related myelosuppression and hypersplenism/splenomegaly. 1. Alcohol cessation counseling provided, I've explained to her the direct myelosuppressive effect alcohol has as well as cirrhosis related to hypersplenism/splenomegaly with resultant splenic sequestration of platelets as well as WBCs. Continue supportive care with vitamin supplementation and abstinence from alcohol. Adama Minor MD Nov 10, 2016 18:23
[2016-11-10] MEDS: REMOVE OLD PATCH T-DERMAL SCH (20:19)
--- NOTE | 2016-11-10 23:37 | HHI.GIFU ---
Subjective Remarks patient was very sleepy when i saw her, no new compalins except of general weakness and reduction of pain meds Objective Vitals I&O Vital Signs Date Time Temp Pulse Resp B/P (MAP) Pulse Ox O2 Delivery O2 Flow Rate FiO2 11/10/16 18:50 18 11/10/16 17:58 97.9 76 19 121/74 (90) 92 11/10/16 17:02 18 11/10/16 12:59 97.6 84 19 108/55 (72) 98 11/10/16 08:23 98.2 77 19 110/53 (72) 93 11/10/16 04:00 97.7 87 20 110/45 (66) 99 11/10/16 00:00 98.9 87 20 104/42 (62) 98 I/O 11/10/16 11/10/16 11/10/16 11/11/16 11/11/16 11/11/16 07:00 15:00 23:00 07:00 15:00 23:00 Intake Total 720 ml 300 ml Balance 720 ml 300 ml Intake Oral 720 ml 300 ml # Voids 5 # Bowel Movements 1 Laboratory Laboratory Tests Test 11/10/16 10:15 White Blood Count 2.1 Red Blood Count 3.73 Hemoglobin 8.9 Hematocrit 28.3 Mean Corpuscular Volume 76.0 Mean Corpuscular Hemoglobin 24.0 Mean Corpuscular Hemoglobin Concent 31.5 Red Cell Distribution Width 19.5 Platelet Count 59 Mean Platelet Volume 11.6 Neutrophils (%) (Auto) 43.5 Lymphocytes (%) (Auto) 33.1 Monocytes (%) (Auto) 19.1 Eosinophils (%) (Auto) 3.2 Basophils (%) (Auto) 1.1 Neutrophils # (Auto) 0.9 Lymphocytes # (Auto) 0.7 Monocytes # (Auto) 0.4 Eosinophils # (Auto) 0.1 Basophils # (Auto) 0.0 CBC Comment AUTO DIFF Differential Total Cells Counted 100 Neutrophils % (Manual) 44 Band Neutrophils % 2 Lymphocytes % 45 Monocytes % 3 Eosinophils % 3 Basophils % 3 Neutrophils # (Manual) 1.0 Differential Comment FINAL DIFF MANUAL Platelet Estimate LOW Platelet Morphology Comment NORMAL Basophilic Stippling MOD Target Cells 2+ Ovalocytes 2+ Blood Urea Nitrogen 7 Creatinine 0.54 Random Glucose 172 Total Protein 6.8 Albumin 2.3 Calcium Level 8.7 Alkaline Phosphatase 105 Aspartate Amino Transf (AST/SGOT) 117 Alanine Aminotransferase (ALT/SGPT) 50 Total Bilirubin 2.8 Sodium Level 138 Potassium Level 3.8 Chloride Level 101 Carbon Dioxide Level 31.4 Anion Gap 6 Estimat Glomerular Filtration Rate 133 Physical Exam HEENT: Pupils round and reactive to light; normocephalic; atraumatic; trace jaundice. Throat is clear. NECK: Neck is supple, no JVD, no lymphadenopathy. CHEST: Chest is clear to auscultation and percussion. CARDIAC: Regular rate and rhythm with no murmur gallop or rubs. ABDOMEN: Soft, nondistended, nontender; no hepatosplenomegaly; bowel sounds are present in all four quadrants. obese EXTREMITIES: No clubbing, cyanosis, or edema. SKIN: Normal; no rash; trace jaundice. 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
[2016-11-11 00:17] VITALS: BP 129/62; PULSE 83; RESP 19; TEMP 97.8; O2SAT 99
[2016-11-11 04:33] VITALS: RESP 18
[2016-11-11] MEDS: SODIUM CHLOR 0.9% 1000 ML INJ 1,000 ML IV SCH ×3 (05:30→20:28)
[2016-11-11 08:21] VITALS: BP 89/40; PULSE 73; RESP 19; TEMP 98.1; O2SAT 95
[2016-11-11] MEDS: SODIUM CHLORIDE 0.9% FLUSH 10 ML FLUSH IV FLUSH SCH ×2 (09:00→20:27)
[2016-11-11] MEDS: LACTULOSE SYRUP 20 GM/30 ML CUP PO SCH ×4 (09:29→20:27)
[2016-11-11] MEDS: THIAMINE HCL 100 MG TAB PO SCH (09:29)
[2016-11-11] MEDS: RIFAXIMIN 550 MG TAB PO SCH ×2 (09:29→20:27)
[2016-11-11] MEDS: LIDOCAINE HCL 5% PATCH T-DERMAL SCH (09:32)
[2016-11-11 12:12] VITALS: BP 142/58; PULSE 86; RESP 19; TEMP 97.4; O2SAT 97
[2016-11-11 13:54] LABS: MITOCHONDRIAL ABS 23.9 U (<=20.0)
[2016-11-11 16:35] VITALS: BP 137/74; PULSE 82; RESP 19; TEMP 97.2; O2SAT 95
--- NOTE | 2016-11-11 18:43 | HHI.GIFU ---
Subjective Remarks Patient laying comfortably in bed, she complain of general abdominal discomfort. She is tolerating food Objective Vitals I&O Vital Signs Date Time Temp Pulse Resp B/P (MAP) Pulse Ox O2 Delivery O2 Flow Rate FiO2 11/11/16 16:35 97.2 82 19 137/74 (95) 95 11/11/16 12:12 97.4 86 19 142/58 (86) 97 11/11/16 08:21 98.1 73 19 89/40 (56) 95 11/11/16 04:33 18 11/11/16 00:17 97.8 83 19 129/62 (84) 99 11/10/16 18:50 18 I/O 11/10/16 11/10/16 11/10/16 11/11/16 11/11/16 11/11/16 07:00 15:00 23:00 07:00 15:00 23:00 Intake Total 720 ml 300 ml 120 ml 600 ml 1860 ml Output Total 1500 ml Balance 720 ml 300 ml 120 ml -900 ml 1860 ml Intake Oral 720 ml 300 ml 120 ml 600 ml 1200 ml IV Total 660 ml Output Urine Total 1500 ml # Voids 5 1 # Bowel Movements 1 1 Physical Exam HEENT: Pupils round and reactive to light; normocephalic; atraumatic; no jaundice. Throat is clear. NECK: Neck is supple, no JVD, no lymphadenopathy. CHEST: Chest is clear to auscultation and percussion. CARDIAC: Regular rate and rhythm with no murmur gallop or rubs. ABDOMEN: Soft, nondistended, mild generalized tenderness; no hepatosplenomegaly ; bowel sounds are present in all four quadrants. obese EXTREMITIES: No clubbing, cyanosis, or edema. 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
[2016-11-11] MEDS: REMOVE OLD PATCH T-DERMAL SCH (20:28)
[2016-11-11 20:30] VITALS: BP 114/49
[2016-11-11] MEDS: traMADol HCL 50 MG TAB PO PRN (20:35)
[2016-11-11] MEDS: PILL SPLITTER OTHER PRN (21:38)
--- NOTE | 2016-11-11 23:36 | HHI.PR ---
Subjective Remarks Follow up for neutropenia, hepato-splenomegaly. Patient reports significant right sided abdominal pain and low dose pain medication is not helping her. No fever, chills. Objective Vitals Vital Signs Date Time Temp Pulse Resp B/P (MAP) Pulse Ox O2 Delivery O2 Flow Rate FiO2 11/11/16 20:30 114/49 (70) 11/11/16 16:35 97.2 82 19 137/74 (95) 95 11/11/16 12:12 97.4 86 19 142/58 (86) 97 11/11/16 08:21 98.1 73 19 89/40 (56) 95 11/11/16 04:33 18 11/11/16 00:17 97.8 83 19 129/62 (84) 99 I/O 11/11/16 11/11/16 11/11/16 11/12/16 11/12/16 11/12/16 07:00 15:00 23:00 07:00 15:00 23:00 Intake Total 600 ml 1860 ml Output Total 1500 ml Balance -900 ml 1860 ml Intake Oral 600 ml 1200 ml IV Total 660 ml Output Urine Total 1500 ml # Bowel Movements 1 Result Diagram: 11/10/16 1015 11/10/16 1015 Objective Remarks GENERAL: Alert, NAD. SKIN: Warm and dry. HEAD: Normocephalic. EYES: No scleral icterus. No injection or drainage. NECK: Supple, trachea midline. No JVD or lymphadenopathy. CARDIOVASCULAR: Regular rate and rhythm without murmurs, gallops, or rubs. RESPIRATORY: Breath sounds equal bilaterally. No accessory muscle use. GASTROINTESTINAL: Abdomen tender to palpation juan manuel over right side. BS+. MUSCULOSKELETAL: No cyanosis, or edema. BACK: Nontender without obvious deformity. No CVA tenderness. Procedures None. A/P Assessment and Plan Ms. Abreu is a 31 year old female with a history of alcohol abuse who was admitted due to hepatic encephalopathy, leukopenia, thrombocytopenia. - Hepatic encephalopathy - Ammonia was 103. Continue Lactulose and Rifaximin. - GI following. - Symptoms much improved. - Alcohol abuse - Hep C - Alcoholic liver disease - Hepato-splenomegaly - INR has been 1.6, 1.7 indicating synthetic dysfunction. - Continue Lidocaine patch. Increase oxycodone to 7.5mg Q4hrs PRN. Continue Tramadol. - Continue NS @100cc/hour. - Continue Folic acid and thiamine. - GI following. EGD colonoscopy either as in-patient or outpatient per GI note today. - Leukopenia - Thrombocytopenia - Likely related to alcohol abuse as well as hepato-splenomegaly. - Hematology input appreciated. Full code. Ambulation. Discharge plan: If GI does not plan to perform EGD/Colonoscopy during this admission, patient can likely be discharged home. Mahad Kang DO Nov 11, 2016 23:36
[2016-11-12] VITALS: BP 99/48; PULSE 85; RESP 14; O2SAT 98
[2016-11-12] MEDS: traMADol HCL 50 MG TAB PO PRN ×6 (00:28→22:44)
[2016-11-12] MEDS: PILL SPLITTER OTHER PRN ×4 (01:47→14:38)
[2016-11-12] MEDS: SODIUM CHLOR 0.9% 1000 ML INJ 1,000 ML IV SCH (06:16)
[2016-11-12 07:32] LABS: INDIRECT BILIRUBIN 1.5 MG/DL (0.0-0.8); TOTAL BILIRUBIN ADULT 2.9 MG/DL (0.2-1.0)
[2016-11-12 08:00] VITALS: BP 125/71; PULSE 100; RESP 18; TEMP 96.6; O2SAT 95
[2016-11-12] MEDS: RIFAXIMIN 550 MG TAB PO SCH ×2 (09:11→20:11)
[2016-11-12] MEDS: LIDOCAINE HCL 5% PATCH T-DERMAL SCH (09:11)
[2016-11-12] MEDS: THIAMINE HCL 100 MG TAB PO SCH (09:11)
[2016-11-12] MEDS: LACTULOSE SYRUP 20 GM/30 ML CUP PO SCH ×4 (09:11→20:11)
[2016-11-12] MEDS: FOLIC ACID 1 MG TAB PO SCH (09:11)
[2016-11-12] MEDS: SODIUM CHLORIDE 0.9% FLUSH 10 ML FLUSH IV FLUSH SCH ×2 (09:12→20:12)
[2016-11-12 12:00] VITALS: BP 137/74; PULSE 86; RESP 20; TEMP 99.5; O2SAT 96
[2016-11-12] MEDS: ONDANSETRON HCL 4 MG/2 ML VIAL IV PRN (14:37)
[2016-11-12 16:00] VITALS: BP 119/58; PULSE 87; RESP 20; TEMP 97.7; O2SAT 97
--- NOTE | 2016-11-12 16:03 | HHI.PR ---
Subjective Remarks Discussed with nursing, no acute events reported overnight except for the fact that the patient keeps asking for pain medications sooner than prescribed. Patient herself says she had poor sleep last night and that is the reason why she is tired, denies substantial contributory effects from her pain medications. She clarifies that she does need to be able to go home and care for her kids, says that she is willing to obtain help from Alcoholics Anonymous if it is nearby her residence. Objective Vital Signs Date Time Temp Pulse Resp B/P (MAP) Pulse Ox O2 Delivery O2 Flow Rate FiO2 11/12/16 15:47 18 11/12/16 14:41 18 11/12/16 12:00 99.5 86 20 137/74 (95) 96 11/12/16 08:00 96.6 100 18 125/71 (89) 95 11/12/16 00:00 85 14 99/48 (65) 98 11/11/16 20:30 114/49 (70) 11/11/16 16:35 97.2 82 19 137/74 (95) 95 I/O 11/11/16 11/11/16 11/11/16 11/12/16 11/12/16 11/12/16 06:59 14:59 22:59 06:59 14:59 22:59 Intake Total 600 ml 1860 ml 1200 ml Output Total 1500 ml Balance -900 ml 1860 ml 1200 ml Intake Oral 600 ml 1200 ml 1200 ml IV Total 660 ml Output Urine Total 1500 ml # Voids 4 # Bowel Movements 1 1 Result Diagram: 11/10/16 1015 11/10/16 1015 Objective Remarks GENERAL: Lying in bed, falling asleep, easily awoken, appears drowsy, when talking about her pain medications the patient wakes up and eventually sits up in bed RESPIRATORY: Unlabored breathing GASTROINTESTINAL: Obese abdomen - unable to palpate any focal masses, mild tenderness to palpation on right side MUSCULOSKELETAL: No pedal edema bilaterally. grossly intact ROM of all extremities A/P Assessment and Plan Ms. Abreu is a 31 year old female with a history of alcohol abuse who was admitted due to hepatic encephalopathy, leukopenia, thrombocytopenia. - Hepatic encephalopathy - resolved, Continue Lactulose and Rifaximin. - Hepatic insufficiency - ETOH and Hep C - INR has been 1.6, 1.7 indicating synthetic dysfunction. - Continue Lidocaine patch. Will consider decreasing oxycodone dosing, on tramadol as well - stopping fluids - Continue Folic acid and thiamine. - GI following. EGD colonoscopy if pt remains inpatient and platelets stable - Leukopenia + thrombocytopenia - reviewed labs, likely from myelosupression from ETOH per heme/ onc and hepatosplenomegaly - repeat labs austen to assess for safety for possible EGD Unsteady gait and fatigue - Likely from pain medications as well as deconditioning, PT and OT consulted, awaiting recommendations. Stopping IVF since patient is willing to try increasing her by mouth intake Full code. Ambulation. Discharge plan: rehab to assess patient for disposition, patient willing to do inpatient rehabilitation if warranted. Initial hepatic encephalopathy (reason for admission initially) has resolved Bhupendra Bella MD Nov 12, 2016 16:03
--- NOTE | 2016-11-12 18:52 | HHI.GIFU ---
Subjective Remarks Patient still sleepy, complaining of general abdominal discomfort, no diarrhea no bleeding Objective Vitals I&O Vital Signs Date Time Temp Pulse Resp B/P (MAP) Pulse Ox O2 Delivery O2 Flow Rate FiO2 11/12/16 18:39 16 11/12/16 16:00 97.7 87 20 119/58 (78) 97 11/12/16 15:47 18 11/12/16 12:00 99.5 86 20 137/74 (95) 96 11/12/16 08:00 96.6 100 18 125/71 (89) 95 11/12/16 00:00 85 14 99/48 (65) 98 11/11/16 20:30 114/49 (70) I/O 11/11/16 11/11/16 11/11/16 11/12/16 11/12/16 11/12/16 07:00 15:00 23:00 07:00 15:00 23:00 Intake Total 600 ml 1860 ml 1200 ml 680 ml 900 ml Output Total 1500 ml Balance -900 ml 1860 ml 1200 ml 680 ml 900 ml Intake Oral 600 ml 1200 ml 1200 ml 680 ml IV Total 660 ml 900 ml Output Urine Total 1500 ml # Voids 4 4 # Bowel Movements 1 1 0 Laboratory Laboratory Tests Test 11/12/16 06:35 Total Bilirubin 2.9 Direct Bilirubin 1.4 Indirect Bilirubin 1.5 Aspartate Amino Transf (AST/SGOT) 113 Alanine Aminotransferase (ALT/SGPT) 49 Alkaline Phosphatase 90 Total Protein 6.8 Albumin 2.4 Physical Exam HEENT: Pupils round and reactive to light; normocephalic; atraumatic; no jaundice. Throat is clear. NECK: Neck is supple, no JVD, no lymphadenopathy. CHEST: Chest is clear to auscultation and percussion. CARDIAC: Regular rate and rhythm with no murmur gallop or rubs. ABDOMEN: Soft, nondistended, mild generalized tenderness; no hepatosplenomegaly ; bowel sounds are present in all four quadrants. obese EXTREMITIES: No clubbing, cyanosis, or edema. 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
[2016-11-12] MEDS ORDERED: PEG (High)/E-LYTE SOLN 4000 ML BTL PO ONE (19:00)
[2016-11-12 20:00] VITALS: BP 120/62; PULSE 87; RESP 20; TEMP 96.5; O2SAT 96
[2016-11-12] MEDS: REMOVE OLD PATCH T-DERMAL SCH (20:19)
[2016-11-13] VITALS: BP 138/55; PULSE 80; RESP 20; TEMP 97.1; O2SAT 98
[2016-11-13] MEDS: traMADol HCL 50 MG TAB PO PRN ×3 (02:38→17:48)
[2016-11-13 06:37] LABS: HEMATOCRIT 27.6 % (35.0-46.0); MEAN CELL VOLUME 75.8 FL (80.0-100.0); MEAN CORPUSCULAR HEMOGLOBIN 23.9 PG (27.0-34.0); MEAN CORPUSCULAR HGB CONC 31.5 % (32.0-36.0); PLATELET COUNT 53 TH/MM3 (150-450); RED BLOOD COUNT 3.64 MIL/MM3 (4.00-5.30); RED CELL DISTRIBUTION WIDTH 17.9 % (11.6-17.2); WHITE BLOOD COUNT 2.8 TH/MM3 (4.0-11.0)
[2016-11-13 06:40] LABS: INTERNATIONAL NORMALIZED RATIO 1.5 RATIO; PROTHROMBIN TIME - PATIENT 17.3 SEC (9.8-11.6)
[2016-11-13 06:41] LABS: REVIEW FLAG FINAL
[2016-11-13 07:45] VITALS: BP 84/41; PULSE 90; RESP 18; TEMP 97.5; O2SAT 97
[2016-11-13 08:00] VITALS: BP 84/41; PULSE 90; RESP 20; TEMP 97.5; O2SAT 97
[2016-11-13] MEDS ORDERED: PROPOFOL 200 MG/20 ML AMP IV ONE (08:53)
[2016-11-13] MEDS ORDERED: HYDROmorphone HCL PF 1 MG/ML VIAL ONE (09:00)
--- NOTE | 2016-11-13 09:02 | HHI.GIFU ---
Subjective Remarks Patient was seen and examined, no new complaint, feel better, tolerated prep well Objective Vitals I&O Vital Signs Date Time Temp Pulse Resp B/P (MAP) Pulse Ox O2 Delivery O2 Flow Rate FiO2 11/13/16 07:45 97.5 90 18 84/41 (55) 97 11/13/16 05:07 20 11/13/16 03:38 20 11/13/16 00:00 97.1 80 20 138/55 (82) 98 11/12/16 20:00 96.5 87 20 120/62 (81) 96 11/12/16 16:00 97.7 87 20 119/58 (78) 97 11/12/16 12:00 99.5 86 20 137/74 (95) 96 I/O 11/12/16 11/12/16 11/12/16 11/13/16 11/13/16 11/13/16 06:59 14:59 22:59 06:59 14:59 22:59 Intake Total 1200 ml 680 ml 900 ml 4000 ml 300 ml Balance 1200 ml 680 ml 900 ml 4000 ml 300 ml Intake Oral 1200 ml 680 ml 4000 ml IV Total 900 ml Other 300 ml # Voids 4 4 8 # Bowel Movements 1 0 10 Laboratory Laboratory Tests Test 11/13/16 04:27 White Blood Count 2.8 Red Blood Count 3.64 Hemoglobin 8.7 Hematocrit 27.6 Mean Corpuscular Volume 75.8 Mean Corpuscular Hemoglobin 23.9 Mean Corpuscular Hemoglobin Concent 31.5 Red Cell Distribution Width 17.9 Platelet Count 53 Mean Platelet Volume 10.1 Prothrombin Time 17.3 Prothromb Time International Ratio 1.5 Physical Exam HEENT: Pupils round and reactive to light; normocephalic; atraumatic; no jaundice. Throat is clear. NECK: Neck is supple, no JVD, no lymphadenopathy. CHEST: Chest is clear to auscultation and percussion. CARDIAC: Regular rate and rhythm with no murmur gallop or rubs. ABDOMEN: Soft, nondistended, mild generalized tenderness; no hepatosplenomegaly ; bowel sounds are present in all four quadrants. obese EXTREMITIES: No clubbing, cyanosis, or edema. 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 Colonoscopy was normal. Anemia most likely related to bone marrow suppression, need to be off ETOH, follow up with hematology We will check CBC to make sure that it's stable - HCV PCR and Genotype negative - ETOH cessation program completely - diet as tolerated -We will follow up as needed Chance Elias MD Nov 13, 2016 09:02
--- NOTE | 2016-11-13 09:19 | GIPROC ---
[facility] [address] [place] [address], [id number] EGD PROCEDURE REPORT EXAM DATE: 11/13/2016 PATIENT NAME: Juliana Abreu MR #: [id number] BIRTHDATE: 1985 ATTENDING: Chance Elias MD ORDER #: [id number] BRAKE DRUM LATHE OPERATOR: Caroline Bhatti and Sierra Pinto STATUS: inpatient INDICATIONS: The patient is a 31 yr old female here for an EGD due to abdominal pain and anemia PROCEDURE PERFORMED: EGD w/ biopsy MEDICATIONS: None and Per Anesthesia. TOPICAL ANESTHETIC: none CONSENT: The patient understands the risks and benefits of the procedure and understands that these risks include, but are not limited to: sedation, allergic reaction, infection, perforation and/or bleeding. Alternative means of evaluation and treatment include, among others: physical exam, x-rays, and/or surgical intervention. The patient elects to proceed with this endoscopic procedure. medical equipment was checked for proper function. Hand hygiene and appropriate measures for infection prevention was taken. After the risks, benefits and alternatives of the procedure were thoroughly explained, Informed consent was verified, confirmed and timeout was successfully executed by the treatment team. The patient was anesthetized with topical anesthesia and the [id number] (Pedi C) endoscope was introduced through the mouth and advanced to the second portion of the duodenum. Retroflexed views revealed mild gastropathy in the body and the fundus of the stomach, mild gastritis in the antrum biopsy was done The gastroscope was then slowly withdrawn and removed. Gastritis in the antrum biopsy was done Gastropathy in the body of the stomach and the fundus. ADVERSE EVENTS: There were no complications. IMPRESSIONS: 1. Gastritis in the antrum biopsy was done Gastropathy in the body of the stomach and the fundus 2. Retroflexed views revealed mild gastropathy in the body and the fundus of the stomach, mild gastritis in the antrum biopsy was done RECOMMENDATIONS: 1. Await biopsy results. Biopsy results will not be ready for 7-10 days. If you don't hear from us in two weeks, call our office for biopsy results. 2. Anti-reflux regimen 3. Avoid NSAIDS 4. No tobacco or alcohol PATIENT CONDITION: stable DISPOSITION: Inpatient REPEAT EXAM: Return as needed for EGD Chance Elias MD eSigned: Chance Elias MD 11/13/2016 9:18 AM cc:
--- NOTE | 2016-11-13 09:23 | GIPROC ---
[facility] [address] [place] [address], [id number] COLONOSCOPY PROCEDURE REPORT EXAM DATE: 11/13/2016 PATIENT NAME: Juliana Abreu MR #: [id number] BIRTHDATE: 1985 ENDOSCOPIST: Chance Elias MD ORDER #: [id number] PROJECT PORTFOLIO ANALYST: Caroline Bhatti and Sierra Pinto STATUS: inpatient INDICATIONS: The patient is a 31 yr old female here for a colonoscopy due to anemia, non-specific and abdominal pain PROCEDURE PERFORMED: Colonoscopy, diagnostic MEDICATIONS: None and Per Anesthesia. PREP QUALITY: fair PREP TYPE:GoLytely ESTIMATED BLOOD LOSS: None CONSENT: The patient understands the risks and benefits of the procedure and understands that these risks include, but are not limited to: sedation, allergic reaction, infection, perforation and/or bleeding. Alternative means of evaluation and treatment include, among others: physical exam, x-rays, and/or surgical intervention. The patient elects to proceed with this endoscopic procedure. medical equipment was checked for proper function. Hand hygiene and appropriate measures for infection prevention was taken. After the risks, benefits and alternatives of the procedure were thoroughly explained, Informed consent was verified, confirmed and timeout was successfully executed by the treatment team. A digital exam revealed no abnormalities of the rectum The Pentax [id number] endoscope was introduced through the anus and advanced to the cecum, which was identified by both the appendix and ileocecal valve. The instrument was then slowly withdrawn as the colon was fully examined. COLON FINDINGS: Some stool throughout the colon may have interfered with the vision small lesion. The colon mucosa was otherwise normal. Retroflexed views revealed no abnormalities The scope was then completely withdrawn from the patient and the procedure terminated. ADVERSE EVENTS: There were no complications. IMPRESSIONS: 1. Some stool throughout the colon may have interfered with the vision small lesion 2. The colon mucosa was otherwise normal 3. Retroflexed views revealed no abnormalities 4. Revealed no abnormalities of the rectum RECOMMENDATIONS: 1. Yearly hemoccult 2. High fiber diet 3. Most likely then anemia related to bone marrow suppression from alcohol and liver disease RECALL: Colonoscopy As needed Chance Elias MD eSigned: Chance Elias MD 11/13/2016 9:22 AM cc:
[2016-11-13] MEDS ORDERED: LACTATED RINGER'S 1000 ML INJ 1,000 ML ONE ×3 (09:27→09:42)
[2016-11-13] MEDS: RIFAXIMIN 550 MG TAB PO SCH ×2 (10:08→21:38)
[2016-11-13] MEDS: THIAMINE HCL 100 MG TAB PO SCH (10:08)
[2016-11-13] MEDS: FOLIC ACID 1 MG TAB PO SCH (10:09)
[2016-11-13] MEDS: LACTULOSE SYRUP 20 GM/30 ML CUP PO SCH ×4 (10:09→21:38)
[2016-11-13] MEDS: SODIUM CHLORIDE 0.9% FLUSH 10 ML FLUSH IV FLUSH SCH ×2 (10:12→21:39)
[2016-11-13] MEDS: LIDOCAINE HCL 5% PATCH T-DERMAL SCH (10:16)
[2016-11-13 12:00] VITALS: BP 101/57; PULSE 87; RESP 20; TEMP 98.8; O2SAT 100
--- NOTE | 2016-11-13 14:57 | HHI.PR ---
Subjective Remarks Patient seen and examined today for follow-up on alcohol withdrawal, abdominal pain, pancytopenia, chronic liver disease. Patient resting carefully in bed, appears to be increased somnolent, possibly overmedicated. Patient did undergo endoscopy which did show gastritis. Discussed with physical therapy who indicates that patient was able to stand for only 5 minutes. Patient has been deconditioning while here in the hospital. However, patient does want to go home, she is hopeful that she might deal the discharge home tomorrow. Objective Vitals Vital Signs Date Time Temp Pulse Resp B/P (MAP) Pulse Ox O2 Delivery O2 Flow Rate FiO2 11/13/16 12:00 98.8 87 20 101/57 (72) 100 11/13/16 09:15 78 16 94/61 (72) 100 11/13/16 09:00 98.2 88 18 119/72 (88) 99 11/13/16 08:00 97.5 90 20 84/41 (55) 97 11/13/16 07:45 97.5 90 18 84/41 (55) 97 11/13/16 05:07 20 11/13/16 03:38 20 11/13/16 00:00 97.1 80 20 138/55 (82) 98 11/12/16 20:00 96.5 87 20 120/62 (81) 96 11/12/16 16:00 97.7 87 20 119/58 (78) 97 I/O 11/12/16 11/12/16 11/12/16 11/13/16 11/13/16 11/13/16 06:59 14:59 22:59 06:59 14:59 22:59 Intake Total 1200 ml 680 ml 900 ml 4000 ml 300 ml Balance 1200 ml 680 ml 900 ml 4000 ml 300 ml Intake Oral 1200 ml 680 ml 4000 ml IV Total 900 ml Other 300 ml # Voids 4 4 8 # Bowel Movements 1 0 10 Result Diagram: 11/13/16 0427 11/10/16 1015 Objective Remarks GENERAL: Well-developed, morbidly obese I, in no acute distress. alert and orientated, however appears to be somnolent possibly overmedicated HEENT: Head is normocephalic without any lesions or masses noted. Facial features are symmetric. Eyes: Extraocular muscles are intact. Conjunctivae were clear. NECK: Supple without any masses. Trachea midline no deviation. No JVD, CARDIAC: Regular rhythm, regular rate. S1/S2 are heard. No murmurs gallops or rubs. LUNGS: Clear to auscultation bilaterally. No wheeze, rhonchi or rales. No use of accessory muscles on inspiration or expiration. ABDOMEN: Soft, nontender. Nondistended. Bowel sounds heard in all 4 quadrants. No organomegaly or masses. Negative rebound, negative guarding EXTREMITIES: No edema, pulses are equal bilaterally. No cyanosis or clubbing NEUROLOGY: Mood and affect appear appropriate. Cranial nerves II through XII grossly intact. Moving all extremities, speech is clear Procedures None. Urinary Catheter: No Vascular Central Line Catheter: No A/P Assessment and Plan Hepatic encephalopathy, Patient on lactulose and rifaximin Will need to trend ammonia level Liver enzyme elevation, alcohol liver disease, improving Continue to trend liver enzymes Hepatitis panel performed which is positive for hepatitis C, however viral load less than 15, no treatment necessary at this time, continue outpatient follow-up INR 1.5 Continue folic acid and thiamine Gastroenterology is following the patient Pancytopenia Hematology following the patient, they recommended secondary to chronic alcohol abuse, bone marrow suppression and recommended alcohol cessation Unsteady gait and fatigue Likely from pain medications as well as deconditioning, PT and OT consulted and evaluated patient and indicated patient may benefit from rehabilitation if able to arrange, DVT prevention patient has coagulopathy, early ambulation Full code Discharge Planning We'll consult case management for discharge planning, hopefully tomorrow Cr Sutherland Nov 13, 2016 14:57
[2016-11-13 16:00] VITALS: BP 105/61; PULSE 85; RESP 20; TEMP 97.6; O2SAT 100
--- NOTE | 2016-11-13 17:55 | PD.ONC.PN ---
Subjective Subjective Remarks Ms. Abreu reports that she is doing better today. Her appetite is returning however she reports intermittent nausea. Objective Data Date Time Temp Pulse Resp B/P (MAP) Pulse Ox O2 Delivery O2 Flow Rate FiO2 11/13/16 16:00 97.6 85 20 105/61 (76) 100 11/13/16 12:00 98.8 87 20 101/57 (72) 100 11/13/16 09:15 78 16 94/61 (72) 100 11/13/16 09:00 98.2 88 18 119/72 (88) 99 11/13/16 08:00 97.5 90 20 84/41 (55) 97 11/13/16 07:45 97.5 90 18 84/41 (55) 97 11/13/16 05:07 20 11/13/16 03:38 20 11/13/16 00:00 97.1 80 20 138/55 (82) 98 11/12/16 20:00 96.5 87 20 120/62 (81) 96 11/13/16 11/13/16 11/13/16 06:59 14:59 22:59 Intake Total 4000 ml 1260 ml Balance 4000 ml 1260 ml Result Diagram: 11/13/16 0427 11/10/16 1015 Laboratory Results Laboratory Tests Test 11/13/16 04:27 11/13/16 15:20 White Blood Count 2.8 TH/MM3 Red Blood Count 3.64 MIL/MM3 Hemoglobin 8.7 GM/DL Hematocrit 27.6 % Mean Corpuscular Volume 75.8 FL Mean Corpuscular Hemoglobin 23.9 PG Mean Corpuscular Hemoglobin Concent 31.5 % Red Cell Distribution Width 17.9 % Platelet Count 53 TH/MM3 Mean Platelet Volume 10.1 FL Prothrombin Time 17.3 SEC Prothromb Time International Ratio 1.5 RATIO Ammonia 85 MCMOL/L Administered Medications Medications (Trade) Dose Ordered Sig/Renee Route PRN Reason Start Time Stop Time Status Last Admin Dose Admin Sodium Chloride (NS Flush) 2 ml UNSCH PRN IV FLUSH FLUSH AFTER USING IV ACCESS 11/05/16 00:15 11/07/16 21:52 Sodium Chloride (NS Flush) 2 ml BID IV FLUSH 11/05/16 09:00 11/13/16 10:12 Ondansetron HCl (Zofran Inj) 4 mg Q6H PRN IV NAUSEA OR VOMITING 11/05/16 09:00 11/12/16 14:37 Lactulose (Lactulose Liq) 30 ml QID PO 11/06/16 09:00 11/13/16 14:34 Rifaximin (Xifaxan) 550 mg BID PO 11/06/16 09:00 11/13/16 10:08 Thiamine HCl (Vitamin B1) 100 mg DAILY PO 11/09/16 09:00 11/13/16 10:08 Lidocaine HCl (Lidoderm 5% Patch.12 Hr) 1 patch DAILY T-DERMAL 11/09/16 13:00 11/13/16 10:16 Miscellaneous Information 1 HS T-DERMAL 11/09/16 21:00 11/12/16 20:19 Miscellaneous (Pill Splitter) 1 ea UNSCH PRN OTHER SEE LABEL COMMENTS 11/09/16 13:45 11/12/16 14:38 Folic Acid (Folate) 1 mg DAILY PO 11/12/16 09:00 11/13/16 10:09 Objective Remarks GENERAL: overweight patient in no distress SKIN: Warm and dry. HEAD: Normocephalic. EYES: No scleral icterus. No injection or drainage. NECK: Supple, trachea midline. No JVD or lymphadenopathy. RESPIRATORY: No accessory muscle use. GASTROINTESTINAL: Abdomen soft, non-tender, nondistended. EXTREMITIES: No edema. MUSCULOSKELETAL: Adequate muscle tone. NEUROLOGICAL: No obvious focal deficit. lethargic during conversation Assessment/Plan Problem List: (1) Pancytopenia ICD Codes: D61.818 - Other pancytopenia Status: Chronic Plan: Secondary to chronic ETOH abuse. BM suppression from ETOH. Noted pathology review peripheral smear. Other causes of decrease haptoglobin present such as the liver disease. Liver decompensation to cause decrease in synthetic function of liver, decrease haptoglobin, fibrinogen, albumin, prolonged pt/ptt. 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 LDH only mildly elevated, stable hgb, normal renal function which argues against a microangiopathic hemolytic process. Clinical scenario of alcoholism predominates (2) Alcoholism /alcohol abuse ICD Codes: F10.20 - Alcohol dependence, uncomplicated Status: Chronic Plan: Chronic ETOH abuse. Jaundiced. Advised detox, not certain that pt has resources to stop and is very likely to relapse. Liver decompensation to cause decrease haptoglobin, fibrinogen, albumin, prolonged pt/ptt. GI following. Assessment 1. Alcohol abuse: Counseled on alcohol cessation. She reports plans to remain sober outside of the hospital. 2. 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 Prolonged coags, decreased haptoglobin due to liver disease. GI team following. 3. Pancytopenia: due to direct toxic effects of alcohol on the bone marrow, splenic sequestration. Zoila Bojorquez MD Nov 13, 2016 17:55
[2016-11-13] MEDS ORDERED: SERO50TA PO (19:42)
[2016-11-13 20:00] VITALS: BP 93/59; PULSE 81; RESP 20; TEMP 97.9; O2SAT 99
[2016-11-13] MEDS ORDERED: TEMAZEPAM 7.5 MG CAP PO ONE (20:00)
[2016-11-13] MEDS: REMOVE OLD PATCH T-DERMAL SCH (21:00)
[2016-11-14] VITALS (7 sets, daily range): BP systolic 86–104; BP diastolic 45–70; PULSE 59–86; RESP 14–20; TEMP 96.8–97.9; O2SAT 96–100
[2016-11-14 06:47] LABS: HEMATOCRIT 26.1 % (35.0-46.0); MEAN CELL VOLUME 76.2 FL (80.0-100.0); MEAN CORPUSCULAR HEMOGLOBIN 24.4 PG (27.0-34.0); MEAN CORPUSCULAR HGB CONC 32.1 % (32.0-36.0); PLATELET COUNT 61 TH/MM3 (150-450); RED BLOOD COUNT 3.43 MIL/MM3 (4.00-5.30); RED CELL DISTRIBUTION WIDTH 17.5 % (11.6-17.2); WHITE BLOOD COUNT 2.1 TH/MM3 (4.0-11.0)
[2016-11-14 06:58] LABS: HEMO FLAGS AUTO DIFF
[2016-11-14 07:08] LABS: CHLORIDE 100 MEQ/L (98-107); POTASSIUM 3.7 MEQ/L (3.5-5.1); SODIUM (NA) 135 MEQ/L (136-145)
[2016-11-14 07:12] LABS: ANION GAP 7 MEQ/L (5-15); BICARBONATE 27.8 MEQ/L (21.0-32.0); BLOOD UREA NITROGEN 8 MG/DL (7-18)
[2016-11-14 07:15] LABS: ALT (GPT) 58 U/L (10-53); AST (GOT) 133 U/L (15-37); GLOMERULAR FILTRATION RATE 164 ML/MIN (>89)
[2016-11-14 07:17] LABS: TOTAL BILIRUBIN ADULT 2.5 MG/DL (0.2-1.0)
[2016-11-14 07:18] LABS: ALKALINE PHOSPHATASE 101 U/L (45-117)
[2016-11-14 07:25] LABS: POLYS (SEG NEUTROPHILS) 48 % (16-70); WBC DIFF SAMPLE 100
[2016-11-14 07:26] LABS: KERATOCYTES OCC (NORMAL); OVALOCYTES 2+ (NORMAL); PLATELET ESTIMATE SMEAR LOW (NORMAL); PLATELET MORPHOLOGY NORMAL (NORMAL); SCAN/DIFF FINAL DIFF MANUAL; TARGET CELLS 2+ (NORMAL); TEARDROP RBCS 1+ (NORMAL)
[2016-11-14] MEDS: LIDOCAINE HCL 5% PATCH T-DERMAL SCH (08:54)
[2016-11-14] MEDS: RIFAXIMIN 550 MG TAB PO SCH ×2 (08:54→19:57)
[2016-11-14] MEDS: LACTULOSE SYRUP 20 GM/30 ML CUP PO SCH ×4 (08:54→19:57)
[2016-11-14] MEDS: FOLIC ACID 1 MG TAB PO SCH (08:54)
[2016-11-14] MEDS: THIAMINE HCL 100 MG TAB PO SCH (08:54)
[2016-11-14] MEDS: SODIUM CHLORIDE 0.9% FLUSH 10 ML FLUSH IV FLUSH SCH ×2 (08:54→19:59)
[2016-11-14] MEDS: traMADol HCL 50 MG TAB PO PRN ×2 (08:55→19:57)
[2016-11-14] MEDS ORDERED: Lactulose Liq PO (14:36)
[2016-11-14] MEDS ORDERED: ULTR50TA5 PO (14:36)
[2016-11-14] MEDS ORDERED: WALKER/EXTENDED1 MIS (14:36)
[2016-11-14] MEDS ORDERED: LIDO5DIS5 T-DERMAL (14:36)
[2016-11-14] MEDS ORDERED: XIFA550T4 PO (14:36)
[2016-11-14] MEDS ORDERED: COMMODE BEDSIDE1 MI1 (14:36)
--- NOTE | 2016-11-14 14:36 | HHI.DCPOC ---
Discharge Care Plan Diagnosis: (1) Alcoholism /alcohol abuse (2) Pancytopenia (3) Physical deconditioning (4) Decreased ambulation status Goals to Promote Your Health * To prevent worsening of your condition and complications * To maintain your health at the optimal level Directions to Meet Your Goals Take your medications as prescribed Follow your dietary instruction Follow activity as directed Keep your appointments as scheduled Take your immunizations and boosters as scheduled If your symptoms worsen call your PCP, if no PCP go to Urgent Care Center or Emergency Room Smoking is Dangerous to Your Health. Avoid second hand smoke Call the 24-hour hour crisis hotline for domestic abuse at Cr Sutherland Nov 14, 2016 14:36
--- NOTE | 2016-11-14 14:38 | HHI.FF ---
Face to Face Verification Diagnosis: (1) Decreased ambulation status (2) Physical deconditioning (3) Alcoholism /alcohol abuse (4) Pancytopenia Physical Therapy Order: Evaluate and Treat, Improve ambulation, Strength and gait training Occupational Therapy Order: Evaluate and Treat, Improve ADL, Gross motor coordination, Fine motor coordination Home Health Nursing Order: Medical education Signs/symptoms of disease process Nursing assessment with vital signs I have seen patient Juliana Abreu on 11/14/16. My clinical findings support the need for the requested home health care services because: Deconditioned w/ increased weakness I certify that my clinical findings support that this patient is homebound because: Unsteady gait/balance Cr Sutherland Nov 14, 2016 14:38
--- NOTE | 2016-11-14 14:45 | HHI.DS ---
Discharge Summary Admission Date Nov 10, 2016 at 12:45 Discharge Date: Nov 14, 2016 Admitting Diagnosis Alcohol withdrawal, abdominal pain (1) Cirrhosis ICD Code: K74.60 - Unspecified cirrhosis of liver (2) Pancytopenia ICD Code: D61.818 - Other pancytopenia Status: Chronic (3) Alcoholism /alcohol abuse ICD Code: F10.20 - Alcohol dependence, uncomplicated Status: Chronic (4) Physical deconditioning ICD Code: R53.81 - Other malaise (5) Decreased ambulation status ICD Code: R68.89 - Other general symptoms and signs Procedures EGD 1. Gastritis in the antrum biopsy was done Gastropathy in the body of the stomach and the fundus 2. Retroflexed views revealed mild gastropathy in the body and the fundus of the stomach, mild gastritis in the antrum biopsy was done Colonoscopy 1. Some stool throughout the colon may have interfered with the vision small lesion 2. The colon mucosa was otherwise normal 3. Retroflexed views revealed no abnormalities 4. Revealed no abnormalities of the rectum Brief History - From Admission Patient seen this morning. Reports quitting alcohol 3-4 days ago, and reports one-day history of right upper quadrant pain, confusion. She says she woke up confused She says that she drinks "quite a hell of a lot"of alcohol daily. Patient was noted to have a seizure in the ER last night. She tells me it is 2016, however is unaware of the month. History is difficult secondary to generalized confusion. CBC/BMP: 11/14/16 0540 11/14/16 0540 Significant Findings Laboratory Tests Test 11/12/16 06:35 11/13/16 04:27 11/13/16 15:20 11/14/16 05:40 Total Bilirubin 2.9 MG/DL (0.2-1.0) 2.5 MG/DL (0.2-1.0) Direct Bilirubin 1.4 MG/DL (0.0-0.2) Indirect Bilirubin 1.5 MG/DL (0.0-0.8) Aspartate Amino Transf (AST/SGOT) 113 U/L (15-37) 133 U/L (15-37) Albumin 2.4 GM/DL (3.4-5.0) 2.2 GM/DL (3.4-5.0) White Blood Count 2.8 TH/MM3 (4.0-11.0) 2.1 TH/MM3 (4.0-11.0) Red Blood Count 3.64 MIL/MM3 (4.00-5.30) 3.43 MIL/MM3 (4.00-5.30) Hemoglobin 8.7 GM/DL (11.6-15.3) 8.4 GM/DL (11.6-15.3) Hematocrit 27.6 % (35.0-46.0) 26.1 % (35.0-46.0) Mean Corpuscular Volume 75.8 FL (80.0-100.0) 76.2 FL (80.0-100.0) Mean Corpuscular Hemoglobin 23.9 PG (27.0-34.0) 24.4 PG (27.0-34.0) Mean Corpuscular Hemoglobin Concent 31.5 % (32.0-36.0) Red Cell Distribution Width 17.9 % (11.6-17.2) 17.5 % (11.6-17.2) Platelet Count 53 TH/MM3 (150-450) 61 TH/MM3 (150-450) Prothrombin Time 17.3 SEC (9.8-11.6) Ammonia 85 MCMOL/L (11-32) 94 MCMOL/L (11-32) Monocytes % 11 % (0-8) Neutrophils # (Manual) 1.0 TH/MM3 (1.8-7.7) Platelet Estimate LOW (NORMAL) Target Cells 2+ (NORMAL) Tear Drop Cells 1+ (NORMAL) Ovalocytes 2+ (NORMAL) Keratocytes OCC (NORMAL) Creatinine 0.45 MG/DL (0.50-1.00) Random Glucose 146 MG/DL (74-106) Calcium Level 8.1 MG/DL (8.5-10.1) Alanine Aminotransferase (ALT/SGPT) 58 U/L (10-53) Sodium Level 135 MEQ/L (136-145) PE at Discharge GENERAL: Well-developed, morbidly obese I, in no acute distress. alert and orientated, however appears to be somnolent possibly overmedicated HEENT: Head is normocephalic without any lesions or masses noted. Facial features are symmetric. Eyes: Extraocular muscles are intact. Conjunctivae were clear. NECK: Supple without any masses. Trachea midline no deviation. No JVD, CARDIAC: Regular rhythm, regular rate. S1/S2 are heard. No murmurs gallops or rubs. LUNGS: Clear to auscultation bilaterally. No wheeze, rhonchi or rales. No use of accessory muscles on inspiration or expiration. ABDOMEN: Soft, nontender. Nondistended. Bowel sounds heard in all 4 quadrants. No organomegaly or masses. Negative rebound, negative guarding EXTREMITIES: No edema, pulses are equal bilaterally. No cyanosis or clubbing NEUROLOGY: Mood and affect appear appropriate. Cranial nerves II through XII grossly intact. Moving all extremities, speech is clear Hospital Course 31-year-old female who originally presented to hospital because of alcohol withdrawal, intermittent abdominal pain. Patient was found to have multiple medical problems with pancytopenia related to cirrhosis, bone marrow suppression. Patient had multiple workups performed with GI to include EGD and colonoscopy that did show some gastropathy. Patient continued to have systemic problems related to alcoholism. She does have alcohol encephalopathy, alcoholic coagulopathy, cirrhosis, hepatitis C however viral load is less than 15 minutes at the present time does not require any treatment. Patient is had full workup done by GI, hematology, patient had physical therapy evaluation done in which patient has history of walking with a cane and falling multiple times throughout the years, could be secondary to her body habitus, alcohol encephalopathy, alcoholism. Discussed with physical therapy today indicates patient is stable to go home with walker and bedside commode. At the present time patient is clinically stable. Will plan discharge accordingly. We'll try to have case packer and sealer arrange home health care for nursing care and physical therapy. Provide patient with DME equipment. Discharge when shows arrangements have been made Pt Condition on Discharge: Stable Discharge Disposition: Disch w/ Home Health Serv Discharge Time: > 30 minutes Discharge Instructions DIET: Follow Instructions for: Heart Healthy Diet, Diabetic Diet Activities you can perform: Weight Bearing as Victoriano Activities to Avoid: Driving for 24 hrs Follow up Referrals: Gastroenterology - 2 Weeks Oncology/Hematology - 2 Weeks PCP Follow-up - 1 Week New Medications: Commode Bedside (Commode Bedside) 1 Mis Mis EA .ROUTE DIRECTED, #1 0 Refills Walker/Extended Frame (Walker/Extended Frame) 1 Mis Mis EA .ROUTE DIRECTED, #1 Lidocaine (Lidoderm) 5 % Adh..patch 1 PATCH T-DERMAL DAILY for Pain Management for 30 Days, PATCH Rifaximin (Xifaxan) 550 Mg Tab 550 MG PO BID for hepatic encephalopathy, #62 TAB Tramadol (Ultram) 50 Mg Tab 50 MG PO Q12H PRN for pain, #10 TAB [Lactulose Liq] () 30 ML SYRP 30 ML PO BID for hepatic encephalopathy for 30 Days Continued Medications: Quetiapine (Seroquel) 50 Mg Tab 50 MG PO HS, #30 TAB 0 Refills Discontinued Medications: Insulin Glargine Inj (Lantus Inj) 1,000 Unit/10 Ml Vial 40 UNITS SQ AM for Blood Sugar Management, VIAL 0 Refills [Humalog] () Cr Sutherland Nov 14, 2016 14:44
[2016-11-14] MEDS: REMOVE OLD PATCH T-DERMAL SCH (20:04)
[2016-11-14] MEDS ORDERED: MORPHINE SULFATE 4 MG/ML INJ IV PUSH ONE (22:00)
[2016-11-14] MEDS: SODIUM CHLORIDE 0.9% FLUSH 10 ML FLUSH IV FLUSH PRN (22:19)
[2016-11-15 01:31] VITALS: BP 84/55; PULSE 64; RESP 14; TEMP 97.6; O2SAT 97
[2016-11-15] MEDS ORDERED: IBUPROFEN 400 MG TAB PO ONE (03:45)
[2016-11-15 07:52] LABS: CHLORIDE 103 MEQ/L (98-107); HEMATOCRIT 27.3 % (35.0-46.0); MEAN CELL VOLUME 75.5 FL (80.0-100.0); MEAN CORPUSCULAR HEMOGLOBIN 24.2 PG (27.0-34.0); POTASSIUM 3.6 MEQ/L (3.5-5.1); RED BLOOD COUNT 3.61 MIL/MM3 (4.00-5.30); RED CELL DISTRIBUTION WIDTH 17.5 % (11.6-17.2); SODIUM (NA) 137 MEQ/L (136-145); WHITE BLOOD COUNT 2.9 TH/MM3 (4.0-11.0)
[2016-11-15 08:00] VITALS: BP 82/44; PULSE 67; RESP 17; TEMP 97.2; O2SAT 96
[2016-11-15 08:01] LABS: ANION GAP 7 MEQ/L (5-15); BLOOD UREA NITROGEN 7 MG/DL (7-18)
[2016-11-15 08:04] LABS: ALT (GPT) 61 U/L (10-53); AST (GOT) 135 U/L (15-37); GLOMERULAR FILTRATION RATE 182 ML/MIN (>89)
[2016-11-15 08:06] LABS: TOTAL BILIRUBIN ADULT 2.4 MG/DL (0.2-1.0)
[2016-11-15 08:07] LABS: ALKALINE PHOSPHATASE 101 U/L (45-117)
[2016-11-15 08:09] LABS: HEMO FLAGS AUTO DIFF; PLATELET COUNT 87 TH/MM3 (150-450)
--- NOTE | 2016-11-15 08:12 | HHI.PR ---
Subjective Remarks Patient seen and examined today for follow-up on alcohol withdrawal, abdominal pain, pancytopenia. Patient was discharged yesterday, however, case management unable to supply patient with walker and bedside commode until next Thursday. Patient will remain in hospital until then. Today patient is complaining of dental pain and asking for pain medication to be increased. Objective Vitals Vital Signs Date Time Temp Pulse Resp B/P (MAP) Pulse Ox O2 Delivery O2 Flow Rate FiO2 11/15/16 01:31 97.6 64 14 84/55 (65) 97 11/14/16 20:12 97.9 59 14 88/48 (61) 96 11/14/16 18:43 95/58 (70) 11/14/16 16:00 97.5 72 20 86/45 (59) 100 11/14/16 11:52 96.8 79 20 89/50 (63) 100 11/14/16 09:55 16 11/14/16 09:00 104/70 (81) I/O 11/14/16 11/14/16 11/14/16 11/15/16 11/15/16 11/15/16 06:59 14:59 22:59 06:59 14:59 22:59 Intake Total 720 ml 1920 ml Balance 720 ml 1920 ml Intake Oral 720 ml 1920 ml IV Total 0 ml # Voids 3 10 1 3 # Bowel Movements 1 2 Result Diagram: 11/14/16 0540 11/15/16 0720 Objective Remarks GENERAL: Well-developed, morbidly obese I, in no acute distress. alert and orientated, however appears to be somnolent possibly overmedicated HEENT: Head is normocephalic without any lesions or masses noted. Facial features are symmetric. Eyes: Extraocular muscles are intact. Conjunctivae were clear. Oropharyngeal: Dentition in poor repair. No obvious erythema, abscess, edema NECK: Supple without any masses. Trachea midline no deviation. No JVD, CARDIAC: Regular rhythm, regular rate. S1/S2 are heard. No murmurs gallops or rubs. LUNGS: Clear to auscultation bilaterally. No wheeze, rhonchi or rales. No use of accessory muscles on inspiration or expiration. ABDOMEN: Soft, nontender. Nondistended. Bowel sounds heard in all 4 quadrants. No organomegaly or masses. Negative rebound, negative guarding EXTREMITIES: No edema, pulses are equal bilaterally. No cyanosis or clubbing NEUROLOGY: Mood and affect appear appropriate. Cranial nerves II through XII grossly intact. Moving all extremities, speech is clear Procedures EGD 1. Gastritis in the antrum biopsy was done Gastropathy in the body of the stomach and the fundus 2. Retroflexed views revealed mild gastropathy in the body and the fundus of the stomach, mild gastritis in the antrum biopsy was done Colonoscopy 1. Some stool throughout the colon may have interfered with the vision small lesion 2. The colon mucosa was otherwise normal 3. Retroflexed views revealed no abnormalities 4. Revealed no abnormalities of the rectum Urinary Catheter: No Vascular Central Line Catheter: No A/P Assessment and Plan Hepatic encephalopathy, Patient on lactulose and rifaximin Will need to trend ammonia level Liver enzyme elevation, alcohol liver disease, improving Continue to trend liver enzymes Hepatitis panel performed which is positive for hepatitis C, however viral load less than 15, no treatment necessary at this time, continue outpatient follow-up INR 1.5 Continue folic acid and thiamine Gastroenterology is following the patient Pancytopenia Hematology following the patient, they recommended secondary to chronic alcohol abuse, bone marrow suppression and recommended alcohol cessation Unsteady gait and fatigue Likely from pain medications as well as deconditioning, PT and OT consulted and evaluated patient and indicated patient may benefit from rehabilitation if able to arrange, Dental pain Pen-VK 500 mg 4 times a day Start ibuprofen for improved pain control DVT prevention patient has coagulopathy, early ambulation Full code Discharge Planning We'll consult case management for discharge planning, hopefully tomorrow Cr Sutherland Nov 15, 2016 08:12
[2016-11-15] MEDS: LACTULOSE SYRUP 20 GM/30 ML CUP PO SCH (08:22)
[2016-11-15] MEDS: RIFAXIMIN 550 MG TAB PO SCH (08:22)
[2016-11-15] MEDS: FOLIC ACID 1 MG TAB PO SCH (08:22)
[2016-11-15] MEDS: THIAMINE HCL 100 MG TAB PO SCH (08:22)
[2016-11-15] MEDS: LIDOCAINE HCL 5% PATCH T-DERMAL SCH (08:23)
[2016-11-15] MEDS: traMADol HCL 50 MG TAB PO PRN ×2 (08:27→14:39)
[2016-11-15] MEDS: PENICILLIN V POTASSIUM 500 MG TAB PO SCH ×2 (09:14→14:39)
[2016-11-15] MEDS ORDERED: PENI500T PO (09:37)
[2016-11-15 09:59] LABS: BANDS 4 % (0-6); BASOPHILS 1 % (0-2); EOSINOPHILS 2 % (0-4); NEUTROPHIL # MANUAL DIFF 1.8 TH/MM3 (1.8-7.7); POLYS (SEG NEUTROPHILS) 59 % (16-70); WBC DIFF SAMPLE 100
[2016-11-15 10:00] LABS: TARGET CELLS 1+ (NORMAL)
[2016-11-15] MEDS ORDERED: IBUPROFEN 600 MG TAB PO PRN (10:00)
[2016-11-15 10:01] LABS: KERATOCYTES OCC (NORMAL); OVALOCYTES 1+ (NORMAL); PLATELET ESTIMATE SMEAR LOW (NORMAL); PLATELET MORPHOLOGY NORMAL (NORMAL); ROULEAUX PRESENT (NORMAL); SCAN/DIFF FINAL DIFF MANUAL
[2016-11-15 12:00] VITALS: BP 91/52; PULSE 69; RESP 18; TEMP 97.7; O2SAT 95
== END 2016-11-15 14:29 | disposition home or self-care (01) | DRG 897 ==
LOC: PHEDDLT 01:40 → PH3B 01:50 → OBSVTOIN 11-10 12:45
PROVIDERS: ADMIT Hospitalist; ATTEND Hospitalist
PROC: 0DJD8ZZ Inspection of Lower Intestinal Tract, Via Natural or Artificial Opening Endoscopic (ICD-10-PCS; principal; 2016-11-13 08:13)
PROC: 0DB68ZX Excision of Stomach, Via Natural or Artificial Opening Endoscopic, Diagnostic (ICD-10-PCS; 2016-11-13 08:13)
DX: F10.239 Alcohol dependence with withdrawal, unspecified (principal); D61.818 Other pancytopenia; D68.4 Acquired coagulation factor deficiency; K76.6 Portal hypertension; E66.01 Morbid (severe) obesity due to excess calories; G31.2 Degeneration of nervous system due to alcohol; G40.89 Other seizures; K72.90 Hepatic failure, unspecified without coma; R16.2 Hepatomegaly with splenomegaly, not elsewhere classified; K70.30 Alcoholic cirrhosis of liver without ascites; E11.9 Type 2 diabetes mellitus without complications; D53.9 Nutritional anemia, unspecified; D73.1 Hypersplenism; F17.200 Nicotine dependence, unspecified, uncomplicated; B19.20 Unspecified viral hepatitis C without hepatic coma; Z82.49 Family history of ischemic heart disease and other diseases of the circulatory system; Z83.3 Family history of diabetes mellitus; Z84.89 Family history of other specified conditions; K29.70 Gastritis, unspecified, without bleeding; K31.9 Disease of stomach and duodenum, unspecified; K08.89 Other specified disorders of teeth and supporting structures; R26.81 Unsteadiness on feet
CPT/HCPCS: 70450; 74160; 76937; 80048; 80053; 80069; 80074; 80076; 81001; 82103; 82105; 82140; 82247; 82248; 82390; 82550; 82552; 82607; 82728; 82746; 82784; 82948; 83010; 83036; 83516; 83520; 83540; 83550; 83605; 83615; 83735; 84439; 84443; 84702; 85007; 85025; 85027; 85044; 85060; 85384; 85610; 85730; 86038; 86255; 86803; 87522; 88305; 88312; 96374; 96375; 96376; 99281; G0378; J1170; J1953; J2060; J2270; J2405; J2765; J7030; J7120; Q9967

== ENCOUNTER 2017-02-15 14:48 | Emergency (ER) | payer SELFPAY ==
[~2017-02-15 14:48] MED LIST changes: +COMMODE BEDSIDE1 MI1; -HUMALOG; -LANTUS2P SQ; +LIDO1ADH4 T-DERMAL; +Lactulose Liq PO; -NALOXONE HCL 0.4 MG/ML AMP IV PRN; +PENI500T PO; +SERO50TA PO; -SODIUM CHLOR 0.9% 1000 ML INJ 1,000 ML IV SCH; +TRAM50 PO; +WALKER/EXTENDED1 MIS; +XIFA550T4 PO
[2017-02-15 15:48] VITALS: BP 125/57; PULSE 96; RESP 18; TEMP 98.1; O2SAT 96
[2017-02-15 17:31] LABS: AUTOMATED NEUTROPHIL # 2.3 TH/MM3 (1.8-7.7); BASOPHIL # 0.1 TH/MM3 (0-0.2); BASOPHIL % 1.9 % (0.0-2.0); EOSINOPHIL # 0.1 TH/MM3 (0-0.4); EOSINOPHIL % 2.8 % (0.0-4.0); HEMATOCRIT 35.1 % (35.0-46.0); LYMPH % 38.1 % (9.0-44.0); LYMPHOCYTE # 1.9 TH/MM3 (1.0-4.8); MEAN CELL VOLUME 77.1 FL (80.0-100.0); MEAN CORPUSCULAR HEMOGLOBIN 25.4 PG (27.0-34.0); MONO % 12.1 % (0.0-8.0); NEUT % 45.1 % (16.0-70.0); PLATELET COUNT 97 TH/MM3 (150-450); RED BLOOD COUNT 4.56 MIL/MM3 (4.00-5.30)
[2017-02-15 17:39] LABS: HEMO FLAGS AUTO DIFF
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
[2017-02-15 17:49] LABS: ANION GAP 10 MEQ/L (5-15); AST (GOT) 133 U/L (15-37); BICARBONATE 25.4 MEQ/L (21.0-32.0); BLOOD UREA NITROGEN 6 MG/DL (7-18); CHLORIDE 107 MEQ/L (98-107); GLOMERULAR FILTRATION RATE 187 ML/MIN (>89); POTASSIUM 3.7 MEQ/L (3.5-5.1); SODIUM (NA) 142 MEQ/L (136-145)
[2017-02-15 17:52] LABS: ALKALINE PHOSPHATASE 115 U/L (45-117); ALT (GPT) 52 U/L (10-53); TOTAL BILIRUBIN ADULT 2.7 MG/DL (0.2-1.0)
[2017-02-15 18:14] VITALS: BP 121/59
[2017-02-15 18:23] LABS: OVALOCYTES 1+ (NORMAL); PLATELET ESTIMATE SMEAR LOW (NORMAL); TARGET CELLS 1+ (NORMAL); TEARDROP RBCS 1+ (NORMAL)
[2017-02-15 18:24] LABS: PLATELET MORPHOLOGY ENLARGED (NORMAL); SCAN/DIFF AUTO DIFF CONFIRMED
[2017-02-15 18:39] LABS: BLOOD, URINE NEG (NEG); COMMENT (UR) CULT NOT INDICATED; CULTURE IF INDICATED CULT NOT INDICATED; GLUCOSE,URINE NEG (NEG); KETONE, URINE NEG (NEG); MUCUS URINE FEW /lpf (OCC); NITRITE,URINE NEG (NEG); PH, URINE 6.5 (5.0-8.5); SQUAMOUS EPITHELIAL CELL URINE 1 /hpf (0-5); URINE COLOR YELLOW (YELLW/STRAW)
== END 2017-02-15 18:15 | disposition home or self-care (01) ==
LOC: NEDAMB 14:48 → NEPC 18:15
DX: K74.60 Unspecified cirrhosis of liver (principal); T76.21XA Adult sexual abuse, suspected, initial encounter; J45.909 Unspecified asthma, uncomplicated; F41.9 Anxiety disorder, unspecified; E11.9 Type 2 diabetes mellitus without complications; R56.9 Unspecified convulsions; F17.200 Nicotine dependence, unspecified, uncomplicated; Z88.6 Allergy status to analgesic agent; Z88.5 Allergy status to narcotic agent
CPT/HCPCS: 80053; 81001; 83690; 84703; 85025; 99284